=== PATIENT | male | born 1935 | race African-American/Black ===

== ENCOUNTER 2017-02-17 08:15 | Outpatient (CLI) | payer MEDICARE ==
[2017-02-17] MEDS ORDERED: NACL ONE (08:56)
== END 2017-02-17 08:16 | disposition home or self-care (01) ==
LOC: CT 08:15
PROVIDERS: ATTEND Surgery Vascular Surgery
DX: I70.229 Atherosclerosis of native arteries of extremities with rest pain, unspecified extremity (principal); I10 Essential (primary) hypertension; I25.10 Atherosclerotic heart disease of native coronary artery without angina pectoris; E11.9 Type 2 diabetes mellitus without complications; K21.9 Gastro-esophageal reflux disease without esophagitis
CPT/HCPCS: 36415; 75635; 82565; 84520; Q9967

== ENCOUNTER 2017-03-03 08:43 | Outpatient (CLI) | payer MEDICARE ==
--- NOTE | 2017-03-03 11:57 | Cat Scan Report ---
CT ANGIO ABD/FEMORAL ABD AORTA: HISTORY: Atherosclerosis of [place] arteries extremities with rest pain. TECHNIQUE: Helical CT imaging with 1.25mm reconstructions following IV contrast. Sagittal and Coronal 2D reformatted images. 3 dimensional volume rendering technique. Stenosis was measured using NASCET criteria. COMPARISON: 05/27/16. FINDINGS: ABDOMINAL AORTA: There are moderate to severe diffuse calcific plaques throughout the abdominal aorta. No evidence for dissection or aneurysm. There is less than 30% stenosis in the abdominal aorta. There is high grade stenosis at the origin of the celiac axis estimated at 80%. 50% stenosis at the origins of the SMA and PRO. ILIAC ARTERIES: Bilateral common iliac stents are in place which appear patent with less than 30% stenosis. There is 70% stenosis in the mid right external iliac artery. There is 90% stenosis in the distal left external iliac artery. The internal iliac arteries contain moderate plaque but no hemodynamically significant stenosis. RIGHT LOWER EXTREMITY: There is diffuse atherosclerotic disease with eventual occlusion in the right superficial femoral artery. There is reconstitution of flow in the distal superficial femoral artery and popliteal artery with stenosis measuring up to 50%. There are diffuse arterial calcifications distal to the knee but the vessels appear to be patent to the ankle with multiple focal stenoses estimated at 75%.. LEFT LOWER EXTREMITY: Diffuse atherosclerotic plaques in occlusion is noted throughout the proximal and mid left superficial femoral artery. There is reconstitution of flow in the left popliteal artery with up to 50% stenosis. There are diffuse calcifications in the arterial structures distal to the knee but they appear to be patent to the ankle with multiple areas of stenosis measuring up to 75%. Impression: Severe diffuse atherosclerotic disease. 80% stenosis at the origin of the celiac axis. 50% stenosis at the origin of the SMA and PRO. 70% stenosis in the right external iliac artery. 90% stenosis in the left external iliac artery. 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 Diffuse atherosclerotic disease distal to both knees with multiple focal stenoses estimated at 75%. No overwhelming change is appreciated since 05/27/16.
== END 2017-03-03 08:44 | disposition home or self-care (01) ==
LOC: CT 08:43
PROVIDERS: ATTEND Surgery Vascular Surgery
DX: I70.223 Atherosclerosis of native arteries of extremities with rest pain, bilateral legs (principal); I70.0 Atherosclerosis of aorta; Z95.828 Presence of other vascular implants and grafts
CPT/HCPCS: 75635; Q9967

== ENCOUNTER 2017-03-20 11:32 | Day surgery (SDC) | payer MEDICARE ==
--- NOTE | 2017-03-20 08:49 | History and Physical Report ---
History of Present Illness Date of examination: 03/20/17 History of present illness: Marley Fitzpatrick Date of visit: 03/06/2017 : 1935 Age: 81 yrs. ___ CHIEF COMPLAINTS follow up cta Test results returned ___ ALLERGIES No Known Drug Allergies ___ MEDICATIONS 1. Aspir-81 81 mg tablet,delayed release, 1 by mouth daily 2. carvedilol 3.125 mg tablet, 1 by mouth twice daily 3. Cilostazol 100 Mg Tablet, 1 by mouth twice daily for 30 days 4. clopidogrel 75 mg tablet, 1 by mouth daily 5. compression socks, medium 6. Eye Drops Allergy Relief 0.05 %-0.25 %, Take as Directed 7. Januvia 100 mg tablet, 1 by mouth daily 8. lisinopril 10 mg tablet, 1 by mouth daily 9. nitroglycerin 0.4 mg sublingual tablet, as needed, for chest pain x3 doses 10. Omeprazole 20 Mg Capsule,delayed Release, 1 by mouth daily 11. simvastatin 20 mg tablet, 1 by mouth daily ___ Cardiology - LVEF __ HISTORY OF PRESENT ILLNESS Here to follow up CTA results. He is not here with an produce field merchandiser, we called his grandson who was able to interpret over the phone. He still reports severe left foot pain, not as much right foot pain. All of this is by phone interpetation. Pain rated as life-style limiting, and he is still taking Pletal , asa, plavix, statin, since iliac stents placed. CTA shows patent bilateral JUAN stents, right mid EIA 70% stenosis, Left EIA 90% stenosis, b/l sfa occlusions. Left leg has the most pain and is life-style limiting. ___ REVIEW OF SYSTEMS General/Constitutional: denies recent weight loss, denies recent weight gain, denies fever, denies chills, denies change in exercise tolerance Integumentary: denies change in hair or nails, denies rashes, denies skin lesions Eyes: denies diplopia, denies visual field defects, denies blurred vision, denies eye pain, denies discharge Ears, Nose, Mouth, Throat: denies hearing loss, denies epistaxis, denies hoarseness, denies difficulty speaking Respiratory: denies dyspnea, denies cough, denies wheezing, denies hemoptysis, denies orthopnea, denies PND Cardiovascular: denies palpitations, denies chest pain, denies peripheral edema , denies syncope, denies claudication Gastrointestinal: denies ulcer disease, denies hematochezia and denies melena Musculoskeletal: pain both leg(s) Neurological: denies strokes, denies TIA, denies seizure disorder Psychiatric: denies depression, denies substance abuse, denies change in cognitive functions Endocrine: denies heat/cold intolerance, denies polydipsia, denies polyuria Hematological/Immunologic: denies food allergies, denies seasonal allergies, denies bleeding disorders PHYSICAL EXAMINATION VITAL SIGNS: Blood Pressure- 110/70 Sitting, Left arm, regular cuff Pulse- 82/min. Respirations- 15/min. Weight- 160.68943 lbs. Height- 60.00" BMI: 31 Constitutional: slightly overweight Skin: warm and dry to touch, no apparent skin lesions, no apparent masses noted Head: normocephalic, non tender, no palpable masses Eyes: EOMS Intact, PERRL, conjunctivae and lids unremarkable ENT: ears unremarkable, throat clear, without erythema, good dentition Neck: no JVD Chest: normal symmetry Cardiac: regular rhythm Abdomen: abdomen soft, non-tender Peripheral Pulses: nonpalpa b/l femoral and pedal pulses Extremities & Back: no cyanosis present, no edema observed, no dependent rubor Psychiatric: normal affect Neurological: no gross motor deficits ___ IMPRESSIONS/PLAN 1. Atherosclerosis Of Coronary Artery Bypass Graft(s) Without Angina Pectoris 2. Type 2 Diabetes Mellitus With Unspecified Complications 3. Chronic Kidney Disease, Unspecified 4. Essential (primary) Hypertension 5. Cardiomyopathy, Unspecified 6. Atherosclerosis of [place] arteries of extremities with intermittent claudication, left leg 7. Precordial pain Discussed with him angiogram via produce field merchandiser and will focus on b/l eia, and left sfa occlusion. D/w risks, benefits. I also advised him that he needs an produce field merchandiser present with him the day of the procedure or I may not do it, to make sure he understands fully my instructions. ___ TODAYS ORDERS 1. dx:Patient Education ICD-10: I10, MedlinePlus Connect results for ICD-10 I10 , I10 2. Afoapllbs-Pvjhnm-Qrzz-FORENSIC MEDICAL EXAMINER-stent, First Available, I70.212 ___ Clinic Physician: Sarvaanan Zuniga MD MD Referring Physician: FAVIO MCLEOD Medications and Allergies Allergies Allergy/AdvReac Type Severity Reaction Status Date / Time No Known Allergies Allergy Verified 11/28/14 22:35 Home Medications Medication Instructions Recorded Confirmed Last Taken Type Omeprazole [PriLOSEC] 20 mg PO QDAY 11/28/14 02/21/17 04/07/15 History Carvedilol [Coreg] 3.125 mg PO BID #60 tablet 04/10/15 02/21/17 Unknown Rx Aspirin EC [Aspirin Enteric Coated 81 mg PO QDAY tablet 10/06/15 02/21/17 Unknown Rx TAB] Clopidogrel [Plavix] 75 mg PO DAILY tablet 10/06/15 02/21/17 Unknown Rx Januvia 100 mg PO DAILY 02/24/16 07/01/16 Unknown History Famotidine [Pepcid] 20 mg PO BID #60 tablet 07/02/16 02/21/17 Unknown Rx Cilostazol [Pletal] 100 mg PO BID 02/21/17 02/23/17 02/20/17 History Lisinopril [Zestril TAB] 5 mg PO QDAY 02/21/17 Unknown History Nitroglycerin [Nitrostat] 0.4 mg SL Q5M PRN 02/21/17 02/21/17 Unknown History
[2017-03-20 12:37] LABS: Basophils % (Auto) 0.5 % (0.0-1.8); Eosinophils % (Auto) 0.4 % (0.0-4.3); Hematocrit 34.1 % (35.5-45.6); Hemoglobin 11.9 gm/dl (11.8-15.2); Mean Corpuscular HGB Conc 35 % (32-34); Mean Corpuscular Hemoglobin 32 pg (28-32); Mean Corpuscular Volume 91 fl (84-94); Platelet Count 112 K/mm3 (140-440); Red Blood Count 3.73 M/mm3 (3.65-5.03)
[2017-03-20 12:48] LABS: INR 1.02 (0.87-1.13)
[2017-03-20 12:58] LABS: Anion Gap 20 mmol/L; Blood Urea Nitrogen 15 mg/dL (9-20); Calcium 8.6 mg/dL (8.4-10.2); Carbon Dioxide 22 mmol/L (22-30); Chloride 106.3 mmol/L (98-107); Glucose 95 mg/dL (75-100); Potassium 4.3 mmol/L (3.6-5.0); Sodium 144 mmol/L (137-145)
[2017-03-20] MEDS ORDERED: NACL 0.9% 500 ML 500 ML IV SCH (13:00)
--- NOTE | 2017-03-20 14:04 | Progress Note ---
Assessment and Plan Risks of procedure explained through foreign language interpreter, all questions answered Consent obtained No changes to H&P Subjective Date of service: 03/20/17 Principal diagnosis: PAD, Severe left leg claudication Interval history: No change in H&P Discussed via foreign language interpreter Objective - Constitutional Vitals: Vital Signs - 12hr 03/20/17 12:29 Temperature 98.4 F Pulse Rate [ 67 From Monitor] Respiratory 14 Rate Blood Pressure 157/64 [Left Arm] O2 Sat by Pulse 98 Oximetry - Labs CBC & Chem 7: 03/20/17 12:28 03/20/17 12:28 Labs: Abnormal lab results 03/20/17 Range/Units 12:28 Hct 34.1 L (35.5-45.6) % MCHC 35 H (32-34) % RDW 16.0 H (13.2-15.2) % Plt Count 112 L (140-440) K/mm3 [place] % (Auto) 11.3 H (0.0-7.3) %
[2017-03-20] MEDS ORDERED: HEPARIN/NS 5000 UNIT/500ML(CATH LAB) 1,000 ML IR ONE (14:09)
[2017-03-20] MEDS ORDERED: VERSED ONE (14:10)
[2017-03-20] MEDS ORDERED: SUBLIMAZE ONE (14:10)
[2017-03-20] MEDS ORDERED: HEPARIN 10,000 UNITS/10 ML ONE (14:10)
[2017-03-20] MEDS ORDERED: XYLOCAINE 2% INFILTRATI ONE (14:10)
[2017-03-20] MEDS ORDERED: ANCEF/STERILE WATER 2 GM/20 ML 2 GM/20 ML SYRINGE IV ONE (14:10)
--- NOTE | 2017-03-20 15:50 | Procedure Note ---
Date of procedure: 03/20/17 Pre-op diagnosis: Left leg severe claudication Post-op diagnosis: same Procedure: 1. Ultrasound-guided access of right common femoral artery 2. Abdominal aortogram with left lower runoff 3. Right external iliac artery LIQUOR GRINDER MILL OPERATOR with 6x4 balloon. 4. Perclose Proglide closure to right groin Anesthesia: local Surgeon: HEMANTH OSMAN Estimated blood loss: minimal IV fluids: 300 Pathology: none Condition: stable Disposition: same day
--- NOTE | 2017-03-20 15:52 | Operative Report ---
Operative Report Operative Report: Findings: Abdominal Aorta Patent Right Iliac System Patent JUAN stent, Stenosis mid External Iliac 60-70%, diffuse disease IIA Right Femoral System Patent STENCIL CUTTER, PFA, SFA poorly visualized Right Leg Runoff Not imaged Left Iliac System Patent JUAN stent, Patent EIA, IIA Left Femoral System Patent STENCIL CUTTER, Occluded SFA proximally, Patent PFA Left Femoral Runoff Distal SFA reconstitution, Patent Popliteal, Proximal Occlusion of PT, THAO; 1-vessel runoff Peroneal Which reconstitutes distal PT Closure Device Perclose Proglide x 2 Complications None Interventions: 1. Ultrasound-guided access of Right Common Femoral Artery 2. Abdominal Aortogram 3. Left Lower Extremity Runoff 4. Angioplasty of right EIA 6x4 Estimated Blood Loss: Minimal Complications: None Disposition: PACU Stable Procedure Details The risks, benefits, complications, treatment options, and expected outcomes were discussed with the patient. The patient and/or family concurred with the proposed plan, giving informed consent. Patient was brought to the manager labor relations after IV hydration was begun and oral premedication was given. The patient was further sedated with Fentanyl and Versed and then prepped and draped in the usual manner. Under ultrasound guidance and using the modified Seldinger access technique, I gained access to the common femoral artery and this was eventually upsized to a 6 [place] sheath. Omniflush Catheter was placed in the abdominal aorta over wire and an aortogram was performed. Runoff pictures were obtained by selecting the contralateral iliac system with Bentson wire and Omniflush catheter. This showed the above. I placed a ibrahim wire down the lower extremity and placed a 6F Destination sheath but this could not traverse the bifurcation with both common iliac stents. I tried multiple combinations of wires including Amplatz, Advantage and no combination allowed the sheath to get over the stents at the bifurcation. I was able to treat the right EIA with 6 mm balloon with good result afterwards. I did a sheath angiogram of the contralateral side which confirmed a good access location and I was able to place proglide closures x 2 with no bleeding afterwards. The patient tolerated the procedure well and there were no complications. Saravanan Zuniga MD Vascular Surgery [facility]
[2017-03-20 17:17] VITALS: BP 158/64
--- NOTE | 2017-03-21 08:00 | Vascular Lab Report ---
MISCELLANEOUS VESSEL IDENTIFICATION: COMMENTS ON THE SCAN: The right common femoral artery was identified and under real-time ultrasound guidance was cannulated. IMPRESSION: Successful ultrasound guided arterial cannulation.
== END 2017-03-20 17:46 | disposition home or self-care (01) ==
LOC: OPU 11:32
PROVIDERS: ATTEND Surgery Vascular Surgery
DX: I70.212 Atherosclerosis of native arteries of extremities with intermittent claudication, left leg (principal); E11.22 Type 2 diabetes mellitus with diabetic chronic kidney disease; I12.9 Hypertensive chronic kidney disease with stage 1 through stage 4 chronic kidney disease, or unspecified chronic kidney disease; N18.9 Chronic kidney disease, unspecified; Z79.899 Other long term (current) drug therapy; Z79.82 Long term (current) use of aspirin
CPT/HCPCS: 36415; 37220; 75710; 76937; 80048; 85025; 85610; 85730; C1725; C1760; C1769; C1887; J0690; J1644; J2250; J3010; J7040; Q9967

== ENCOUNTER 2017-06-13 12:03 | Emergency (ER) | payer MEDICARE ==
--- NOTE | 2017-06-13 12:36 | Emergency Department Report ---
Chief Complaint: Chest Pain Stated Complaint: CHEST PAIN Time Seen by Provider: 06/13/17 12:32 - HPI History of Present Illness: PT states he started having chest pain yesterday. PT states earlier today the pain was "really hard" PT states his pain is a little better now. - ROS Review of Systems: + nausea + diaphoresis - noted by career agent - Exam Vital Signs: Vital Signs 06/13/17 12:09 Temperature 98.3 F Pulse Rate 95 H Respiratory 16 Rate Blood Pressure 123/63 O2 Sat by Pulse 95 Oximetry Physical Exam: PT is alert no acute resp distress skin dry and warm MSE screening note: Focused history and physical exam performed. Due to findings the following was ordered: ekg, labs, xr ED Disposition for MSE Condition: Stable
[2017-06-13 13:13] LABS: Hematocrit 30.9 % (35.5-45.6); Hemoglobin 10.9 gm/dl (11.8-15.2); Mean Corpuscular HGB Conc 35 % (32-34); Mean Corpuscular Hemoglobin 32 pg (28-32); Mean Corpuscular Volume 90 fl (84-94); Red Blood Count 3.45 M/mm3 (3.65-5.03); Red Cell Distribution Width 14.9 % (13.2-15.2); White Blood Count 8.8 K/mm3 (4.5-11.0)
[2017-06-13 13:25] LABS: INR 0.98 (0.87-1.13)
[2017-06-13 13:26] LABS: Partial Thromboplastin Time 37.6 Sec. (24.2-36.6)
[2017-06-13 13:39] LABS: Alanine Aminotransferase 21 units/L (7-56); Albumin 4.3 g/dL (3.9-5); Albumin/Globulin Ratio 1.1 %; Alkaline Phosphatase 54 units/L (35-129); Anion Gap 19 mmol/L; BUN/Creatinine Ratio 18; Blood Urea Nitrogen 20 mg/dL (9-20); Calcium 8.8 mg/dL (8.4-10.2); Carbon Dioxide 23 mmol/L (22-30); Chloride 96.1 mmol/L (98-107); Glucose 117 mg/dL (75-100); Potassium 4.6 mmol/L (3.6-5.0); Sodium 133 mmol/L (137-145); Total Protein 8.1 g/dL (6.3-8.2)
--- NOTE | 2017-06-13 13:42 | XRay Report ---
Chest 2 views: Compared to 02/24/17. History: Chest pain. Findings: Cardiomegaly. Trachea is midline. Ill-defined opacities are noted left lower lobe. Normal CP angles. Impression: Probable left lower lobe pneumonia.
[2017-06-13 14:07] LABS: Anisocytosis 1+; Basophils % (Manual) 0 % (0.0-1.8); Blastocytes % (Manual) 0 %; Eosinophils % (Manual) 0 % (0.0-4.3); Poikilocytosis 1+
[2017-06-13 14:08] LABS: Elliptocytes 1+
[2017-06-13 14:09] LABS: Acanthocytes 1+; Burr Cells Few; Schistocytes Few
[2017-06-13 14:10] LABS: Diff Status Complete; Large Platelets Few; Platelet Estimate Cons
[2017-06-13 14:17] LABS: Platelet Count 93 K/mm3 (140-440)
--- NOTE | 2017-06-13 16:37 | Emergency Department Report ---
ED Shortness of Breath HPI - General Chief Complaint: Chest Pain Stated Complaint: CHEST PAIN Time Seen by Provider: 06/13/17 12:32 Source: patient (caregiver) Mode of arrival: Ambulatory Limitations: Language Barrier, Other - History of Present Illness MD Complaint: shortness of breath, cough -: Gradual, days(s) (7) Severity: moderate Pain Scale: 3 Quality: dull, aching, sharp Consistency: constant Improves With: nothing Worsens With: coughing, inspiration Known History Of: diabetes Context: medication noncompliance Associated Symptoms: chest pain, cough Treatments Prior to Arrival: none - Related Data Home Oxygen Therapy: No Home Medications Medication Instructions Recorded Confirmed Last Taken Omeprazole [PriLOSEC] 20 mg PO QDAY 11/28/14 03/20/17 03/19/17 20mg Januvia 100 mg PO DAILY 02/24/16 03/20/17 03/19/17 100mg Cilostazol [Pletal] 100 mg PO BID 02/21/17 03/20/17 03/19/17 100mg Lisinopril [Zestril TAB] 5 mg PO QDAY 02/21/17 03/20/17 03/19/17 5mg Nitroglycerin [Nitrostat] 0.4 mg SL Q5M PRN 02/21/17 02/21/17 Unknown Previous Rx's Medication Instructions Recorded Last Taken Type Carvedilol [Coreg] 3.125 mg PO BID #60 tablet 04/10/15 03/19/17 Rx 3.125mg Aspirin EC [Aspirin Enteric Coated 81 mg PO QDAY tablet 10/06/15 03/19/17 Rx TAB] 81mg Clopidogrel [Plavix] 75 mg PO DAILY tablet 10/06/15 03/19/17 Rx 75mg Famotidine [Pepcid] 20 mg PO BID #60 tablet 07/02/16 03/19/17 Rx 20mg Amoxicillin/K Clav Tab [Augmentin 1 tab PO Q12HR 10 Days 06/13/17 Unknown Rx 875 mg] Allergies Allergy/AdvReac Type Severity Reaction Status Date / Time No Known Allergies Allergy Verified 11/28/14 22:35 ED Review of Systems ROS: Stated complaint: CHEST PAIN Other details as noted in HPI Constitutional: denies: chills, fever Eyes: denies: eye pain, eye discharge, vision change ENT: denies: ear pain, throat pain Respiratory: cough, shortness of breath. denies: orthopnea, wheezing Cardiovascular: chest pain. denies: palpitations Endocrine: no symptoms reported Gastrointestinal: denies: abdominal pain, nausea, diarrhea Genitourinary: denies: urgency, dysuria Musculoskeletal: denies: back pain, joint swelling, arthralgia Skin: denies: rash, lesions Neurological: denies: headache, weakness, paresthesias Psychiatric: denies: anxiety, depression Hematological/Lymphatic: denies: easy bleeding, easy bruising ED Past Medical Hx - Past Medical History Previous Medical History?: Yes Hx Hypertension: Yes Hx Heart Attack/AMI: Yes (x 2) Hx Diabetes: Yes Hx GERD: Yes Hx HIV: No Additional medical history: gout. 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 - Surgical History Past Surgical History?: Yes Hx Open Heart Surgery: Yes (2009) Additional Surgical History: open heart - Social History Smoking Status: Never Smoker Substance Use Type: None - Medications Home Medications: Home Medications Medication Instructions Recorded Confirmed Last Taken Type Omeprazole [PriLOSEC] 20 mg PO QDAY 11/28/14 03/20/17 03/19/17 History 20mg Carvedilol [Coreg] 3.125 mg PO BID #60 tablet 04/10/15 03/20/17 03/19/17 Rx 3.125mg Aspirin EC [Aspirin Enteric Coated 81 mg PO QDAY tablet 10/06/15 03/20/1703/19 Rx TAB] 81mg Clopidogrel [Plavix] 75 mg PO DAILY tablet 10/06/15 03/20/17 03/19/17 Rx 75mg Januvia 100 mg PO DAILY 02/24/16 03/20/17 03/19/17 History 100mg Famotidine [Pepcid] 20 mg PO BID #60 tablet 07/02/16 03/20/17 03/19/17 Rx 20mg Cilostazol [Pletal] 100 mg PO BID 02/21/17 03/20/17 03/19/17 History 100mg Lisinopril [Zestril TAB] 5 mg PO QDAY 02/21/17 03/20/17 03/19/17 History 5mg Nitroglycerin [Nitrostat] 0.4 mg SL Q5M PRN 02/21/17 02/21/17 Unknown History Amoxicillin/K Clav Tab [Augmentin 1 tab PO Q12HR 10 Days 06/13/17 Unknown Rx 875 mg] ED Physical Exam - General Limitations: Other General appearance: alert, in no apparent distress - Head Head exam: Present: atraumatic, normocephalic - Eye Eye exam: Present: normal appearance - ENT ENT exam: Present: mucous membranes moist - Neck Neck exam: Present: normal inspection - Respiratory Respiratory exam: Absent: normal lung sounds bilaterally (Rhonchi LLL), respiratory distress - Cardiovascular Cardiovascular Exam: Present: regular rate, normal rhythm. Absent: systolic murmur, diastolic murmur, rubs, gallop - GI/Abdominal GI/Abdominal exam: Present: soft, normal bowel sounds - Rectal Rectal exam: Present: deferred - Extremities Exam Extremities exam: Present: normal inspection - Back Exam Back exam: Present: normal inspection - Neurological Exam Neurological exam: Present: alert, oriented X3 - Psychiatric Psychiatric exam: Present: normal affect, normal mood - Skin Skin exam: Present: warm, dry, intact, normal color. Absent: rash ED Course Vital Signs 06/13/17 06/13/17 06/13/17 12:09 13:55 14:00 Temperature 98.3 F Pulse Rate 95 H 96 H 89 Respiratory 16 19 20 Rate Blood Pressure 123/63 136/71 Blood Pressure 143/71 [Right] O2 Sat by Pulse 95 99 Oximetry 06/13/17 06/13/17 06/13/17 14:01 14:03 14:31 Temperature Pulse Rate 88 90 Respiratory 16 19 Rate Blood Pressure 134/66 Blood Pressure [Right] O2 Sat by Pulse 98 98 Oximetry 06/13/17 15:01 Temperature Pulse Rate 101 H Respiratory 20 Rate Blood Pressure 134/66 Blood Pressure [Right] O2 Sat by Pulse 96 Oximetry ED Medical Decision Making - Lab Data Result diagrams: 06/13/17 13:00 06/13/17 13:00 - EKG Data EKG shows normal: sinus rhythm (Sinus tachycardia), axis, intervals, QRS complexes, ST-T waves (Normal ) Rate: tachycardia - EKG Data Interpretation: no acute changes - Radiology Data Radiology results: report reviewed, image reviewed - Medical Decision Making Patient with apparent LLL pneumonia with PSI class III. He has not been on antibiotics outpatient and is not in distress. I D/W caregiver that if he declines or gets no better then he can return to the ED or PCP. He will get a shot of rocephin and do oral augmentin. Critical care attestation.: If time is entered above; I have spent that time in minutes in the direct care of this critically ill patient, excluding procedure time. ED Disposition Clinical Impression: LLL pneumonia Disposition: DC-01 TO HOME OR SELFCARE Is pt being admited?: No Does the pt Need Aspirin: No Condition: Stable Instructions: Bacterial Pneumonia (ED), Community-acquired Pneumonia (ED) Prescriptions: Amoxicillin/K Clav Tab [Augmentin 875 mg] 1 tab PO Q12HR 10 Days Referrals: PRIMARY MD MANDA [Primary Care Provider] - 3-5 Days TINO OCASIO MD [Staff Physician] - 3-5 Days Time of Disposition: 16:43 (Please discharge after rocephin given.)
[2017-06-13] MEDS ORDERED: ROCEPHIN/NS 1 GM/50 ML 1 GM/50 ML BAG IV ONE (16:41)
[2017-06-13 16:48] VITALS: BP 139/64
== END 2017-06-13 17:15 | disposition home or self-care (01) ==
LOC: ED 12:03
DX: J18.9 Pneumonia, unspecified organism (principal); I10 Essential (primary) hypertension; I25.2 Old myocardial infarction; E11.9 Type 2 diabetes mellitus without complications; K21.9 Gastro-esophageal reflux disease without esophagitis; Z98.890 Other specified postprocedural states; Z79.82 Long term (current) use of aspirin
CPT/HCPCS: 36415; 71020; 80053; 84484; 85007; 85025; 85610; 85730; 93005; 93010; 96365; 99284; J0696

== ENCOUNTER 2017-07-20 15:17 | Inpatient (IN) | payer MEDICARE ==
[2017-07-20 16:11] LABS: Calcium 8.4 mg/dL (8.4-10.2)
[2017-07-20 16:23] LABS: Hematocrit 27.3 % (35.5-45.6); Hemoglobin 9.6 gm/dl (11.8-15.2); Mean Corpuscular HGB Conc 35 % (32-34); Mean Corpuscular Hemoglobin 33 pg (28-32); Mean Corpuscular Volume 93 fl (84-94); Red Blood Count 2.94 M/mm3 (3.65-5.03); Red Cell Distribution Width 16.2 % (13.2-15.2); White Blood Count 8.2 K/mm3 (4.5-11.0)
[2017-07-20 16:26] LABS: Platelet Count 75 K/mm3 (140-440)
[2017-07-20 17:06] LABS: Basophils % (Manual) 0 % (0.0-1.8); Blastocytes % (Manual) 0 %; Eosinophils % (Manual) 0 % (0.0-4.3)
[2017-07-20 17:07] LABS: Elliptocytes 1+; Large Platelets 1+
[2017-07-20 17:10] LABS: Acanthocytes 1+; Tear Drop Cells 1+
--- NOTE | 2017-07-20 17:10 | Emergency Department Report ---
ED Chest Pain HPI - General Chief Complaint: Chest Pain Stated Complaint: CHEST PAIN Time Seen by Provider: 07/20/17 16:17 Source: patient, EMS, sales account director Mode of arrival: Stretcher Limitations: Language Barrier - History of Present Illness Initial Comments: 81 years old male, does not speak Kiswahili only speak Kazakh, translation through his son, he stated that he started having chest pain this morning, describing it as left-sided chest pain he feels like somebody is sitting on his chest, patient had a history of coronary artery disease, three [place] and CABG. Patient denied any shortness of breath, no nausea no vomiting no fever no cough. MD Complaint: chest pain Onset: during rest Pain Location: substernal Severity scale (0 -10): 5 Quality: tightness - Related Data Previous Rx's Medication Instructions Recorded Last Taken Type Aspirin EC [Aspirin Enteric Coated 81 mg PO QDAY #30 tablet 07/02/17 Unknown Rx TAB] Cilostazol [Pletal] 100 mg PO BID #90 tablet 07/02/17 Unknown Rx Clopidogrel [Plavix] 75 mg PO DAILY #30 tablet 07/02/17 Unknown Rx Colchicine [Colcrys] 0.6 mg PO DAILY #30 tablet 07/02/17 Unknown Rx Lisinopril [Zestril TAB] 5 mg PO QDAY #30 tablet 07/02/17 Unknown Rx Metoprolol [Lopressor TAB] 50 mg PO BID #60 tablet 07/02/17 Unknown Rx Naproxen [Naprosyn] 500 mg PO BID PRN #60 tablet 07/02/17 Unknown Rx Pantoprazole [Protonix] 40 mg PO QDAY #30 tablet 07/02/17 Unknown Rx Pravastatin Sodium [Pravastatin] 10 mg PO QHS #30 tablet 07/02/17 Unknown Rx Sitagliptin Phosphate [Januvia] 100 mg PO DAILY #30 tablet 07/02/17 Unknown Rx predniSONE [Deltasone] 20 mg PO QDAY #7 tablet 07/02/17 Unknown Rx Allergies Allergy/AdvReac Type Severity Reaction Status Date / Time No Known Allergies Allergy Verified 11/28/14 22:35 Heart Score - HEART Score History: Moderately suspicious EKG: Non-specific Age: > 65 Risk factors: > 3 risk factors or hx of atherosclerotic disease Troponin: < normal limit HEART Score: 6 - Critical Actions Critical Actions: 4-6 pts:12-16.6% risk of adverse cardiac event. Should be admitted ED Review of Systems ROS: Stated complaint: CHEST PAIN Other details as noted in HPI Comment: All other systems reviewed and negative Constitutional: denies: chills, fever Respiratory: denies: cough, orthopnea, shortness of breath, SOB with exertion Cardiovascular: chest pain. denies: palpitations Gastrointestinal: denies: abdominal pain, nausea, vomiting Neurological: denies: headache, weakness ED Past Medical Hx - Past Medical History Hx Hypertension: Yes Hx Heart Attack/AMI: Yes (x 2) Hx Congestive Heart Failure: Yes Hx Diabetes: Yes Hx GERD: Yes Hx HIV: No Additional medical history: gout. 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 - Surgical History Hx Open Heart Surgery: Yes (2009) Additional Surgical History: open heart - Social History Smoking Status: Former Smoker Substance Use Type: None - Medications Home Medications: Home Medications Medication Instructions Recorded Confirmed Last Taken Type Aspirin EC [Aspirin Enteric Coated 81 mg PO QDAY #30 tablet 07/02/17 Unknown Rx TAB] Cilostazol [Pletal] 100 mg PO BID #90 tablet 07/02/17 Unknown Rx Clopidogrel [Plavix] 75 mg PO DAILY #30 tablet 07/02/17 Unknown Rx Colchicine [Colcrys] 0.6 mg PO DAILY #30 tablet 07/02/17 Unknown Rx Lisinopril [Zestril TAB] 5 mg PO QDAY #30 tablet 07/02/17 Unknown Rx Metoprolol [Lopressor TAB] 50 mg PO BID #60 tablet 07/02/17 Unknown Rx Naproxen [Naprosyn] 500 mg PO BID PRN #60 tablet 07/02/17 Unknown Rx Pantoprazole [Protonix] 40 mg PO QDAY #30 tablet 07/02/17 Unknown Rx Pravastatin Sodium [Pravastatin] 10 mg PO QHS #30 tablet 07/02/17 Unknown Rx Sitagliptin Phosphate [Januvia] 100 mg PO DAILY #30 tablet 07/02/17 Unknown Rx predniSONE [Deltasone] 20 mg PO QDAY #7 tablet 07/02/17 Unknown Rx ED Physical Exam - General Limitations: Language Barrier General appearance: alert, in no apparent distress - Head Head exam: Present: atraumatic, normocephalic, normal inspection - ENT ENT exam: Present: normal exam - Neck Neck exam: Present: normal inspection - Respiratory Respiratory exam: Present: normal lung sounds bilaterally - Cardiovascular Cardiovascular Exam: Present: regular rate, normal rhythm, normal heart sounds - GI/Abdominal GI/Abdominal exam: Present: soft, normal bowel sounds. Absent: distended, tenderness, guarding, rebound, rigid, mass, bruit, pulsatile mass - Extremities Exam Extremities exam: Present: normal inspection, normal capillary refill. Absent: tenderness - Back Exam Back exam: Present: normal inspection. Absent: CVA tenderness (R), CVA tenderness (L) - Neurological Exam Neurological exam: Present: alert, oriented X3, CN II-XII intact, normal gait - Skin Skin exam: Present: warm, intact, normal color ED Course Vital Signs 07/20/17 07/20/17 07/20/17 15:34 15:54 16:05 Temperature 97.8 F 97.8 F Pulse Rate 92 H 89 Respiratory 20 18 18 Rate Blood Pressure 118/35 Blood Pressure 115/51 [Left] O2 Sat by Pulse 97 100 97 Oximetry - Reevaluation(s) Reevaluation #1: 07/20/17 17:15 Patient stated that his chest pain is better. DEENA score - Deena Score Age > 65: (1) Yes Aspirin use within the Past 7 Days: (1) Yes 3 or more CAD Risk Factors: (1) Yes 2 or more Angina events in past 24 hrs: (1) Yes Known CAD with more than 50% Stenosis: (1) Yes Elevated Cardiac Markers: (0) No ST Deviation Greater than 0.5mm: (0) No DEENA Score: 5 ED Medical Decision Making - Lab Data Result diagrams: 07/20/17 15:45 07/20/17 15:45 - EKG Data -: EKG Interpreted by Me EKG shows normal: sinus rhythm Rate: normal - EKG Data Interpretation: no acute changes - Radiology Data Radiology results: image reviewed interpreted by me: Chest x-ray no acute finding - Medical Decision Making Discussed with Dr. Shaikh to admit, Dr. Shaikh accepted the patient to be admitted to his service Critical care attestation.: If time is entered above; I have spent that time in minutes in the direct care of this critically ill patient, excluding procedure time. ED Disposition Clinical Impression: Chest pain Disposition: OP ADMIT IP TO THIS HOSP Is pt being admited?: Yes Condition: Stable Instructions: Chest Pain (ED) Referrals: PRIMARY CARE, [Primary Care Provider] - 3-5 Days
[2017-07-20 17:11] LABS: Anisocytosis 1+; Ovalocytes 2+
[2017-07-20] MEDS ORDERED: BABY ASPIRIN PO ONE (17:11)
[2017-07-20 17:12] LABS: Diff Status Complete; Platelet Estimate Appears Decreased
--- NOTE | 2017-07-20 23:39 | History and Physical Report ---
History of Present Illness Date of examination: 07/20/17 Date of admission: 07/20/17 17:19 Chief complaint: CC L side CP 1 day History of present illness: - History of Present Illness Initial Comments: 81 years old male, does not speak [place] only speak [place], translation through his son, he stated that he started having chest pain this morning, describing it as left-sided chest pain he feels like somebody is sitting on his chest, patient had a history of coronary artery disease, three [place] and CABG. Patient denied any shortness of breath, no nausea no vomiting no fever no cough. MD Complaint: chest pain Onset: during rest Pain Location: substernal Severity scale (0 -10): 5 Quality: tightness HEART Score History: Moderately suspicious EKG: Non-specific Age: > 65 Risk factors: > 3 risk factors or hx of atherosclerotic disease Troponin: < normal limit HEART Score: 6 - Past Medical History Hx Hypertension: Yes Hx Heart Attack/AMI: Yes (x 2) Hx Congestive Heart Failure: Yes Hx Diabetes: Yes Hx GERD: Yes Additional medical history: gout. 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 - Surgical History Hx Open Heart Surgery: Yes (2009) Additional Surgical History: open heart - Social History Smoking Status: Former Smoker Substance Use Type: None - Medications Home Medications: Home Medications Medication Instructions Recorded Confirmed Last Taken Type Aspirin EC [Aspirin Enteric Coated 81 mg PO QDAY #30 tablet 07/02/17 Unknown Rx TAB] Cilostazol [Pletal] 100 mg PO BID #90 tablet 07/02/17 Unknown Rx Clopidogrel [Plavix] 75 mg PO DAILY #30 tablet 07/02/17 Unknown Rx Colchicine [Colcrys] 0.6 mg PO DAILY #30 tablet 07/02/17 Unknown Rx Lisinopril [Zestril TAB] 5 mg PO QDAY #30 tablet 07/02/17 Unknown Rx Metoprolol [Lopressor TAB] 50 mg PO BID #60 tablet 07/02/17 Unknown Rx Naproxen [Naprosyn] 500 mg PO BID PRN #60 tablet 07/02/17 Unknown Rx Pantoprazole [Protonix] 40 mg PO QDAY #30 tablet 07/02/17 Unknown Rx Pravastatin Sodium [Pravastatin] 10 mg PO QHS #30 tablet 07/02/17 Unknown Rx Sitagliptin Phosphate [Januvia] 100 mg PO DAILY #30 tablet 07/02/17 Unknown Rx predniSONE [Deltasone] 20 mg PO QDAY #7 tablet 07/02/17 Unknown Rx Medications and Allergies Allergies Allergy/AdvReac Type Severity Reaction Status Date / Time No Known Allergies Allergy Verified 11/28/14 22:35 Home Medications Medication Instructions Recorded Confirmed Last Taken Type Aspirin EC [Aspirin Enteric Coated 81 mg PO QDAY #30 tablet 07/02/17 07/20/17 Unknown Rx TAB] Clopidogrel [Plavix] 75 mg PO DAILY #30 tablet 07/02/17 07/20/17 Unknown Rx Colchicine [Colcrys] 0.6 mg PO DAILY #30 tablet 07/02/17 07/20/17 Unknown Rx Lisinopril [Zestril TAB] 5 mg PO QDAY #30 tablet 07/02/17 07/20/17 Unknown Rx Metoprolol [Lopressor TAB] 50 mg PO BID #60 tablet 07/02/17 07/20/17 Unknown Rx Pantoprazole [Protonix] 40 mg PO QDAY #30 tablet 07/02/17 07/20/17 Unknown Rx Pravastatin Sodium [Pravastatin] 10 mg PO QHS #30 tablet 07/02/17 07/20/17 Unknown Rx Sitagliptin Phosphate [Januvia] 100 mg PO DAILY #30 tablet 07/02/17 07/20/17 Unknown Rx Carvedilol [Coreg] 3.125 mg PO BID 07/20/17 07/20/17 Unknown History Simvastatin [Zocor TAB] 20 mg PO QHS 07/20/17 07/20/17 Unknown History Review of Systems All systems: negative Constitutional: no weight loss, no weight gain, no fever, no chills, no sweats, no night sweats Ears, nose, mouth and throat: no dysphagia, no hoarseness, no sore throat, no swelling in throat, no odynophagia Cardiovascular: chest pain, no orthopnea, no palpitations, no rapid/irregular heart beat, no edema, no syncope, no lightheadedness, no shortness of breath, no dyspnea on exertion Respiratory: no cough, no cough with sputum, no excessive sputum, no hemoptysis , no shortness of breath, no dyspnea on exertion Gastrointestinal: no abdominal pain, no nausea, no vomiting, no diarrhea, no constipation, no change in bowel habits, no hematemesis, no coffee ground emesis Genitourinary Male: no dysuria, no hematuria, no flank pain, no discharge, no urinary frequency, no urinary hesitancy, no nocturia, no incontinence Musculoskeletal: no neck stiffness, no neck pain, no shooting arm pain, no arm numbness/tingling, no low back pain, no shooting leg pain, no leg numbness/ tingling, no redness of joints Integumentary: no rash, no pruritis, no redness, no sores, no wounds, no jaundice, no boils, no blisters Neurological: no head injury, no transient paralysis, no paralysis, no weakness , no parathesias, no numbness, no tingling, no seizures, no syncope, no tremors , no ataxia, no lack of coordination Psychiatric: no anxiety, no memory loss, no change in sleep habits, no sleep disturbances, no insomnia, no hypersomnia, no change in appetite, no change in libido Endocrine: no cold intolerance, no heat intolerance, no polyphagia, no excessive thirst, no polydipsia, no polyuria, no nocturia, no excessive sweating , no flushing, no weight change Hematologic/Lymphatic: no easy bruising, no easy bleeding Allergic/Immunologic: no urticaria, no allergic rhinitis, no wheezing Exam - Constitutional Vitals: Temp Pulse Resp BP Pulse Ox 98 F 100 H 18 110/84 97 07/20/17 21:03 07/20/17 21:03 07/20/17 22:00 07/20/17 21:03 07/20/17 20:43 General appearance: Present: no acute distress, well-nourished - EENT Eyes: Present: PERRL ENT: hearing intact, clear oral mucosa - Neck Neck: Present: supple, normal ROM - Respiratory Respiratory effort: normal Respiratory: bilateral: CTA - Cardiovascular Heart Sounds: Present: S1 & S2. Absent: rub, click - Extremities Extremities: pulses symmetrical, No edema Peripheral Pulses: within normal limits - Abdominal General gastrointestinal: Present: soft, non-tender, non-distended, normal bowel sounds Male genitourinary: Present: normal - Integumentary Integumentary: Present: clear, warm, dry - Musculoskeletal Musculoskeletal: gait normal, strength equal bilaterally - Psychiatric Psychiatric: appropriate mood/affect, intact judgment & insight - Neurologic Neurologic: CNII-XII intact, moves all extremities Results - Labs CBC & Chem 7: 07/20/17 15:45 11 15:45 Labs: Laboratory Last Values WBC 8.2 K/mm3 (4.5-11.0) 07/20/17 15:45 RBC 2.94 M/mm3 (3.65-5.03) L 07/20/17 15:45 Hgb 9.6 gm/dl (11.8-15.2) L 07/20/17 15:45 Hct 27.3 % (35.5-45.6) L 07/20/17 15:45 MCV 93 fl (84-94) 07/20/17 15:45 MCH 33 pg (28-32) H 07/20/17 15:45 MCHC 35 % (32-34) H 07/20/17 15:45 RDW 16.2 % (13.2-15.2) H 07/20/17 15:45 Plt Count 75 K/mm3 (140-440) L 07/20/17 15:45 [place] % (Auto) Video Clerk 07/20/17 15:45 Add Manual Diff Complete 07/20/17 15:45 Total Counted 100 07/20/17 15:45 Seg Neuts % (Manual) 64.0 % (40.0-70.0) 07/20/17 15:45 Band Neutrophils % 0 % 07/20/17 15:45 Lymphocytes % (Manual) 26.0 % (13.4-35.0) 07/20/17 15:45 Reactive Lymphs % (Man) 0 % 07/20/17 15:45 Monocytes % (Manual) 10.0 % (0.0-7.3) H 07/20/17 15:45 Eosinophils % (Manual) 0 % (0.0-4.3) 07/20/17 15:45 Basophils % (Manual) 0 % (0.0-1.8) 07/20/17 15:45 Metamyelocytes % 0 % 07/20/17 15:45 Myelocytes % 0 % 07/20/17 15:45 Promyelocytes % 0 % 07/20/17 15:45 Blast Cells % 0 % 07/20/17 15:45 Nucleated RBC % Not Reportable 07/20/17 15:45 Seg Neutrophils # Man 5.2 K/mm3 (1.8-7.7) 07/20/17 15:45 Band Neutrophils # 0.0 K/mm3 07/20/17 15:45 Lymphocytes # (Manual) 2.1 K/mm3 (1.2-5.4) 07/20/17 15:45 Abs React Lymphs (Man) 0.0 K/mm3 07/20/17 15:45 Monocytes # (Manual) 0.8 K/mm3 (0.0-0.8) 07/20/17 15:45 Eosinophils # (Manual) 0.0 K/mm3 (0.0-0.4) 07/20/17 15:45 Basophils # (Manual) 0.0 K/mm3 (0.0-0.1) 07/20/17 15:45 Metamyelocytes # 0.0 K/mm3 07/20/17 15:45 Myelocytes # 0.0 K/mm3 07/20/17 15:45 Promyelocytes # 0.0 K/mm3 07/20/17 15:45 Blast Cells # 0.0 K/mm3 07/20/17 15:45 WBC Morphology Not Reportable 07/20/17 15:45 Hypersegmented Neuts Not Reportable 07/20/17 15:45 Hyposegmented Neuts Not Reportable 07/20/17 15:45 Hypogranular Neuts Not Reportable 07/20/17 15:45 Smudge Cells Not Reportable 07/20/17 15:45 Toxic Granulation Not Reportable 07/20/17 15:45 Toxic Vacuolation Not Reportable 07/20/17 15:45 Dohle Bodies Not Reportable 07/20/17 15:45 Pelger-Huet Anomaly Not Reportable 07/20/17 15:45 [place] Rods Not Reportable 07/20/17 15:45 Platelet Estimate Appears decreased 07/20/17 15:45 Clumped Platelets Not Reportable 07/20/17 15:45 Plt Clumps, EDTA Not Reportable 07/20/17 15:45 Large Platelets 1+ 07/20/17 15:45 Giant Platelets Not Reportable 07/20/17 15:45 Platelet Satelliting Not Reportable 07/20/17 15:45 Plt Morphology Comment Not Reportable 07/20/17 15:45 RBC Morphology Not Reportable 07/20/17 15:45 Dimorphic RBCs Not Reportable 07/20/17 15:45 Polychromasia Not Reportable 07/20/17 15:45 Hypochromasia Not Reportable 07/20/17 15:45 Poikilocytosis Not Reportable 07/20/17 15:45 Anisocytosis 1+ 07/20/17 15:45 Microcytosis Not Reportable 07/20/17 15:45 Macrocytosis Not Reportable 07/20/17 15:45 Spherocytes Not Reportable 07/20/17 15:45 Pappenheimer Bodies Not Reportable 07/20/17 15:45 Sickle Cells Not Reportable 07/20/17 15:45 Target Cells Not Reportable 07/20/17 15:45 Tear Drop Cells 1+ 07/20/17 15:45 Ovalocytes 2+ 07/20/17 15:45 Helmet Cells Not Reportable 07/20/17 15:45 [place] Bodies Not Reportable 07/20/17 15:45 [place] Rings Not Reportable 07/20/17 15:45 [place] Cells Not Reportable 07/20/17 15:45 Bite Cells Not Reportable 07/20/17 15:45 Crenated Cell Not Reportable 07/20/17 15:45 Elliptocytes 1+ 07/20/17 15:45 Acanthocytes (Spur) 1+ 07/20/17 15:45 Rouleaux Not Reportable 07/20/17 15:45 Hemoglobin C Crystals Not Reportable 07/20/17 15:45 Schistocytes Not Reportable 07/20/17 15:45 Malaria parasites Not Reportable 07/20/17 15:45 [place] Bodies Not Reportable 07/20/17 15:45 Hem Pathologist Commnt No 07/20/17 15:45 Sodium 134 mmol/L (137-145) L 07/20/17 15:45 Potassium 4.0 mmol/L (3.6-5.0) 07/20/17 15:45 Chloride 97.0 mmol/L (98-107) L 07/20/17 15:45 Carbon Dioxide 23 mmol/L (22-30) 07/20/17 15:45 Anion Gap 18 mmol/L 07/20/17 15:45 BUN 25 mg/dL (9-20) H 07/20/17 15:45 Creatinine 1.4 mg/dL (0.8-1.5) 07/20/17 15:45 Estimated GFR 48 ml/min 07/20/17 15:45 BUN/Creatinine Ratio 18 % 07/20/17 15:45 Glucose 103 mg/dL (75-100) H 07/20/17 15:45 POC Glucose 109 (70-105) H 07/20/17 15:53 Calcium 8.4 mg/dL (8.4-10.2) 07/20/17 15:45 Troponin T < 0.010 ng/mL (0.00-0.029) 07/20/17 21:20 - Imaging and Cardiology EKG: report reviewed (Sinus Tach pvc's Multiple) Chest x-ray: report reviewed (NAF) Assessment and Plan Advance Directives: Yes (Full code) VTE prophylaxis?: Chemical Plan of care discussed with patient/family: Yes - Patient Problems (1) COTY (acute kidney injury) Current Visit: No Status: Acute (2) Acute coronary syndrome Current Visit: No Status: Acute Plan to address problem: Chest pain w/u Patient has multiple comorbidities including CAD PAD T2DM Cardiology consult requested Lexiscan ordered (3) CAD (coronary artery disease) Current Visit: No Status: Chronic Qualifiers: Coronary Disease-Associated Artery/Lesion type: bypass graft [place] vs. transplanted heart: [place] heart Associated angina: angina presence unspecified Qualified Code(s): I25.810 - Atherosclerosis of coronary artery bypass graft(s) without angina pectoris Plan to address problem: Cont Plavix (4) COTY (acute kidney injury) Current Visit: Yes Status: Acute Plan to address problem: Mild Should resolve with fluids IV (5) PAD (peripheral artery disease) Current Visit: Yes Status: Chronic Plan to address problem: Continue Pletal (6) T2DM (type 2 diabetes mellitus) Current Visit: Yes Status: Chronic Qualifiers: Diabetes mellitus complication status: without complication Plan to address problem: Cont oral hypoglycemics and coverage A1c ordered (7) HLD (hyperlipidemia) Current Visit: Yes Status: Chronic Qualifiers: Hyperlipidemia type: mixed hyperlipidemia Qualified Code(s): E78.2 - Mixed hyperlipidemia Plan to address problem: Cont statins (8) DVT prophylaxis Current Visit: Yes Status: Acute Plan to address problem: Cont Lovenox
[2017-07-21] MEDS ORDERED: DULCOLAX PR PRN (00:24)
[2017-07-21] MEDS ORDERED: PERCOCET 5/325 PO PRN (00:24)
[2017-07-21] MEDS ORDERED: TYLENOL PO PRN (00:24)
[2017-07-21] MEDS ORDERED: DILAUDID IV PRN (00:24)
[2017-07-21] MEDS ORDERED: AMBIEN PO PRN (00:24)
[2017-07-21] MEDS ORDERED: ZOFRAN IV PRN (00:24)
[2017-07-21] MEDS ORDERED: MILK OF MAGNESIA PO PRN (00:24)
[2017-07-21 01:52] LABS: Creatine Kinase MB 1.4 ng/mL (0.0-4.0)
[2017-07-21 01:54] LABS: Creatine Kinase 40 units/L (55-170)
[2017-07-21 07:17] LABS: Creatine Kinase MB 1.5 ng/mL (0.0-4.0)
[2017-07-21 07:21] LABS: Creatine Kinase 38 units/L (55-170)
--- NOTE | 2017-07-21 07:46 | XRay Report ---
Single view chest: Compared to 06/24/17. History: Shortness of breath. Findings: Borderline cardiomegaly. Patient status post CABG. No consolidation, pneumothorax or pleural effusion. Impression: No acute cardiopulmonary findings.
[2017-07-21] MEDS: PLAVIX PO SCH (09:50)
[2017-07-21] MEDS: HALFPRIN EC PO SCH (09:50)
[2017-07-21] MEDS: COLCRYS PO SCH (09:50)
[2017-07-21] MEDS: PROTONIX PO SCH (09:50)
[2017-07-21] MEDS: COREG PO SCH ×2 (09:51→21:57)
[2017-07-21] MEDS: TRADJENTA PO SCH (09:51)
[2017-07-21] MEDS: ZESTRIL PO SCH (09:51)
[2017-07-21] MEDS ORDERED: LOPRESSOR PO SCH (10:00)
--- NOTE | 2017-07-21 12:12 | Progress Note ---
Assessment and Plan Assessment and plan: Chest pain. Patient has comorbidities with CAD, PAD, and diabetes mellitus type 2. Cardiology consultation pending. Follow-up Lexiscan results. CAD. Continue Plavix. Diabetes mellitus type 2. Continue oral hypoglycemics and follow-up hemoglobin A1c. Hyperlipidemia. Continue statins. DVT prophylaxis. History Interval history: Patient still complains of chest pain 5/10 in the midsternal region of the chest. No shortness of breath Hospitalist Physical - Constitutional Vitals: Temp Pulse Resp BP Pulse Ox 97.5 F L 56 L 18 130/106 99 07/21/17 00:22 07/21/17 09:51 07/21/17 10:00 07/21/17 09:51 07/21/17 06:31 General appearance: Present: no acute distress, well-nourished - EENT Eyes: Present: PERRL, EOM intact ENT: hearing intact, clear oral mucosa, dentition normal - Neck Neck: Present: supple, normal ROM - Respiratory Respiratory effort: normal Respiratory: bilateral: CTA - Cardiovascular Rhythm: regular Heart Sounds: Present: S1 & S2. Absent: gallop, rub - Extremities Extremities: no ischemia, No edema, Full ROM - Abdominal General gastrointestinal: soft, non-tender, non-distended, normal bowel sounds - Integumentary Integumentary: Present: clear, warm, dry - Neurologic Neurologic: CNII-XII intact, moves all extremities Results - Labs CBC & Chem 7: 07/20/17 15:45 07/20/17 15:45 Labs: Laboratory Last Values WBC 8.2 K/mm3 (4.5-11.0) 07/20/17 15:45 RBC 2.94 M/mm3 (3.65-5.03) L 07/20/17 15:45 Hgb 9.6 gm/dl (11.8-15.2) L 07/20/17 15:45 Hct 27.3 % (35.5-45.6) L 07/20/17 15:45 MCV 93 fl (84-94) 07/20/17 15:45 MCH 33 pg (28-32) H 07/20/17 15:45 MCHC 35 % (32-34) H 07/20/17 15:45 RDW 16.2 % (13.2-15.2) H 07/20/17 15:45 Plt Count 75 K/mm3 (140-440) L 07/20/17 15:45 [place] % (Auto) Solution Specialist 07/20/17 15:45 Add Manual Diff Complete 07/20/17 15:45 Total Counted 100 07/20/17 15:45 Seg Neuts % (Manual) 64.0 % (40.0-70.0) 07/20/17 15:45 Band Neutrophils % 0 % 07/20/17 15:45 Lymphocytes % (Manual) 26.0 % (13.4-35.0) 07/20/17 15:45 Reactive Lymphs % (Man) 0 % 07/20/17 15:45 Monocytes % (Manual) 10.0 % (0.0-7.3) H 07/20/17 15:45 Eosinophils % (Manual) 0 % (0.0-4.3) 07/20/17 15:45 Basophils % (Manual) 0 % (0.0-1.8) 07/20/17 15:45 Metamyelocytes % 0 % 07/20/17 15:45 Myelocytes % 0 % 07/20/17 15:45 Promyelocytes % 0 % 07/20/17 15:45 Blast Cells % 0 % 07/20/17 15:45 Nucleated RBC % Not Reportable 07/20/17 15:45 Seg Neutrophils # Man 5.2 K/mm3 (1.8-7.7) 07/20/17 15:45 Band Neutrophils # 0.0 K/mm3 07/20/17 15:45 Lymphocytes # (Manual) 2.1 K/mm3 (1.2-5.4) 07/20/17 15:45 Abs React Lymphs (Man) 0.0 K/mm3 07/20/17 15:45 Monocytes # (Manual) 0.8 K/mm3 (0.0-0.8) 07/20/17 15:45 Eosinophils # (Manual) 0.0 K/mm3 (0.0-0.4) 07/20/17 15:45 Basophils # (Manual) 0.0 K/mm3 (0.0-0.1) 07/20/17 15:45 Metamyelocytes # 0.0 K/mm3 07/20/17 15:45 Myelocytes # 0.0 K/mm3 07/20/17 15:45 Promyelocytes # 0.0 K/mm3 07/20/17 15:45 Blast Cells # 0.0 K/mm3 07/20/17 15:45 WBC Morphology Not Reportable 07/20/17 15:45 Hypersegmented Neuts Not Reportable 07/20/17 15:45 Hyposegmented Neuts Not Reportable 07/20/17 15:45 Hypogranular Neuts Not Reportable 07/20/17 15:45 Smudge Cells Not Reportable 07/20/17 15:45 Toxic Granulation Not Reportable 07/20/17 15:45 Toxic Vacuolation Not Reportable 07/20/17 15:45 Dohle Bodies Not Reportable 07/20/17 15:45 Pelger-Huet Anomaly Not Reportable 07/20/17 15:45 [place] Rods Not Reportable 07/20/17 15:45 Platelet Estimate Appears decreased 07/20/17 15:45 Clumped Platelets Not Reportable 07/20/17 15:45 Plt Clumps, EDTA Not Reportable 07/20/17 15:45 Large Platelets 1+ 07/20/17 15:45 Giant Platelets Not Reportable 07/20/17 15:45 Platelet Satelliting Not Reportable 07/20/17 15:45 Plt Morphology Comment Not Reportable 07/20/17 15:45 RBC Morphology Not Reportable 07/20/17 15:45 Dimorphic RBCs Not Reportable 07/20/17 15:45 Polychromasia Not Reportable 07/20/17 15:45 Hypochromasia Not Reportable 07/20/17 15:45 Poikilocytosis Not Reportable 07/20/17 15:45 Anisocytosis 1+ 07/20/17 15:45 Microcytosis Not Reportable 07/20/17 15:45 Macrocytosis Not Reportable 07/20/17 15:45 Spherocytes Not Reportable 07/20/17 15:45 Pappenheimer Bodies Not Reportable 07/20/17 15:45 Sickle Cells Not Reportable 07/20/17 15:45 Target Cells Not Reportable 07/20/17 15:45 Tear Drop Cells 1+ 07/20/17 15:45 Ovalocytes 2+ 07/20/17 15:45 Helmet Cells Not Reportable 07/20/17 15:45 [place] Bodies Not Reportable 07/20/17 15:45 [place] Rings Not Reportable 07/20/17 15:45 Elvia Cells Not Reportable 07/20/17 15:45 Bite Cells Not Reportable 07/20/17 15:45 Crenated Cell Not Reportable 07/20/17 15:45 Elliptocytes 1+ 07/20/17 15:45 Acanthocytes (Spur) 1+ 07/20/17 15:45 Rouleaux Not Reportable 07/20/17 15:45 Hemoglobin C Crystals Not Reportable 07/20/17 15:45 Schistocytes Not Reportable 07/20/17 15:45 Malaria parasites Not Reportable 07/20/17 15:45 [place] Bodies Not Reportable 07/20/17 15:45 Hem Pathologist Commnt No 07/20/17 15:45 Sodium 134 mmol/L (137-145) L 07/20/17 15:45 Potassium 4.0 mmol/L (3.6-5.0) 07/20/17 15:45 Chloride 97.0 mmol/L (98-107) L 07/20/17 15:45 Carbon Dioxide 23 mmol/L (22-30) 07/20/17 15:45 Anion Gap 18 mmol/L 07/20/17 15:45 BUN 25 mg/dL (9-20) H 07/20/17 15:45 Creatinine 1.4 mg/dL (0.8-1.5) 07/20/17 15:45 Estimated GFR 48 ml/min 07/20/17 15:45 BUN/Creatinine Ratio 18 % 07/20/17 15:45 Glucose 103 mg/dL (75-100) H 07/20/17 15:45 POC Glucose 109 (70-105) H 07/20/17 15:53 Hemoglobin A1c 4.9 % (4-6) 07/21/17 01:08 Calcium 8.4 mg/dL (8.4-10.2) 07/20/17 15:45 Total Creatine Kinase 38 units/L (55-170) L 07/21/17 05:52 CK-MB (CK-2) 1.5 ng/mL (0.0-4.0) 07/21/17 05:52 CK-MB (CK-2) Rel Index 3.9 (0-4) 07/21/17 05:52 Troponin T < 0.010 ng/mL (0.00-0.029) 07/21/17 05:52
--- NOTE | 2017-07-21 13:00 | Consultation ---
History of Present Illness Consult date: 07/21/17 Consult reason: chest pain History of present illness: This is an 81yr old [place] male with a history of 4-way coronary artery bypass in 2002. 5 months ago, he underwent drug-eluting stent placement to the mid and distal right coronary. The left internal mammary artery graft to the LAD was patent. Bypass grafts to the right coronary and circumflex systems were occluded, the residual small vessel disease of the circumflex system was recommended for medical therapy. His systolic function was well-preserved at 50- 55%. He is now admitted to this hospital with chest pain. History taken using a side splitter. Patient reports 3-4 days of chest pain lasting several minutes. There is no aggravating factors but chest pain was relieved with nitroglycerin. Patient admits to running out of his medications a week ago. Cycled cardiac enzymes are normal. No acute ischemic changes seen on his ECG. Cardiac consultation was requested. Medications and Allergies Allergies Allergy/AdvReac Type Severity Reaction Status Date / Time No Known Allergies Allergy Verified 11/28/14 22:35 Home Medications Medication Instructions Recorded Confirmed Last Taken Type Aspirin EC [Aspirin Enteric Coated 81 mg PO QDAY #30 tablet 07/02/17 07/20/17 Unknown Rx TAB] Clopidogrel [Plavix] 75 mg PO DAILY #30 tablet 07/02/17 07/20/17 Unknown Rx Colchicine [Colcrys] 0.6 mg PO DAILY #30 tablet 07/02/17 07/20/17 Unknown Rx Lisinopril [Zestril TAB] 5 mg PO QDAY #30 tablet 07/02/17 07/20/17 Unknown Rx Metoprolol [Lopressor TAB] 50 mg PO BID #60 tablet 07/02/17 07/20/17 Unknown Rx Pantoprazole [Protonix] 40 mg PO QDAY #30 tablet 07/02/17 07/20/17 Unknown Rx Pravastatin Sodium [Pravastatin] 10 mg PO QHS #30 tablet 07/02/17 07/20/17 Unknown Rx Sitagliptin Phosphate [Januvia] 100 mg PO DAILY #30 tablet 07/02/17 07/20/17 Unknown Rx Carvedilol [Coreg] 3.125 mg PO BID 07/20/17 07/20/17 Unknown History Simvastatin [Zocor TAB] 20 mg PO QHS 11/16/17 11/16/17 Unknown History Active Meds: Active Medications Acetaminophen (Tylenol) 650 mg PO Q4H PRN PRN Reason: Pain MILD(1-3)/Fever >100.5/ARMSTRONG Aspirin (Halfprin Ec) 81 mg PO QDAY [facility] Last Admin: 07/21/17 09:50 Dose: 81 mg Bisacodyl (Dulcolax) 10 mg PA QDAY PRN PRN Reason: Constipation unrelieved by MOM Carvedilol (Coreg) 3.125 mg PO BID [facility] Last Admin: 07/21/17 09:51 Dose: 3.125 mg Clopidogrel Bisulfate (Plavix) 75 mg PO DAILY [facility] Last Admin: 07/21/17 09:50 Dose: 75 mg Colchicine (Colcrys) 0.6 mg PO DAILY [facility] Last Admin: 07/21/17 09:50 Dose: 0.6 mg Hydromorphone HCl (Dilaudid) 0.5 mg IV Q3H PRN PRN Reason: Pain , Severe (7-10) Linagliptin (Tradjenta) 5 mg PO QDAY [facility] Last Admin: 07/21/17 09:51 Dose: 5 mg Lisinopril (Zestril) 5 mg PO QDAY [facility] Last Admin: 07/21/17 09:51 Dose: 5 mg Magnesium Hydroxide (Milk Of Magnesia) 30 ml PO Q4H PRN PRN Reason: Constipation Ondansetron HCl (Zofran) 4 mg IV Q8H PRN PRN Reason: N/V unrelieved by Reglan Oxycodone/Acetaminophen (Percocet 5/325) 1 tab PO Q6H PRN PRN Reason: Pain, Moderate (4-6) Pantoprazole Sodium (Protonix) 40 mg PO QDAY [facility] Last Admin: 07/21/17 09:50 Dose: 40 mg Pravastatin Sodium (Pravachol) 40 mg PO QHS [facility] Zolpidem Tartrate (Ambien) 5 mg PO QHS PRN PRN Reason: Insomnia Physical Examination Vital Signs Temp Pulse Resp BP Pulse Ox 97.8 F 92 H 20 118/35 97 07/20/17 15:34 07/20/17 15:34 07/20/17 15:34 07/20/17 15:34 07/20/17 15:34 General appearance: no acute distress HEENT: Positive: PERRL Neck: Positive: trachea midline Cardiac: Positive: Reg Rate and Rhythm Lungs: Positive: Decreased Breath Sounds Neuro: Positive: Grossly Intact Results 07/20/17 15:45 07/20/17 15:45 Cardiac Enzymes 07/21/17 07/21/17 Range/Units 01:08 05:52 CK-MB (CK-2) 1.4 1.5 (0.0-4.0) ng/mL CBC 07/20/17 Range/Units 15:45 WBC 8.2 (4.5-11.0) K/mm3 RBC 2.94 L (3.65-5.03) M/mm3 Hgb 9.6 L (11.8-15.2) gm/dl Hct 27.3 L (35.5-45.6) % Plt Count 75 L (140-440) K/mm3 Comprehensive Metabolic Panel 07/20/17 Range/Units 15:45 Sodium 134 L (137-145) mmol/L Potassium 4.0 (3.6-5.0) mmol/L Chloride 97.0 L (98-107) mmol/L Carbon Dioxide 23 (22-30) mmol/L BUN 25 H (9-20) mg/dL Creatinine 1.4 (0.8-1.5) mg/dL Glucose 103 H (75-100) mg/dL Calcium 8.4 (8.4-10.2) mg/dL Assessment and Plan Chest pain Chronic Thrombocytopenia Hx of CAD with 4v CABG [facility] 02/2017: patent SVG to LAD. s/p PCI of the RCA. EF 50-55%.
[2017-07-21 13:14] LABS: Creatine Kinase 42 units/L (55-170); Creatine Kinase MB 1.5 ng/mL (0.0-4.0)
[2017-07-21] MEDS: RANEXA ER PO SCH ×2 (17:25→21:57)
[2017-07-21] MEDS: IMDUR PO SCH (17:27)
[2017-07-21] MEDS: PRAVACHOL PO SCH (21:57)
--- NOTE | 2017-07-21 22:23 | Progress Note ---
Assessment and Plan Chest pain Chronic Thrombocytopenia Hx of CAD with 4v CABG [facility] 02/2017: patent SVG to LAD. s/p PCI of the RCA. EF 50-55%. Recurrent chronic angina in a patient with known CAD due to non-compliance with medical therapy Recommend aggressive medical therapy with BB, ASA, statin and antianginals as needed Recommend aggressive risk factor modification Subjective Date of service: 07/21/17 Interval history: No acute events. Resting comfortably. No chest pain or SOB. Objective Vital Signs Temp Pulse Resp Resp BP BP Pulse Ox 07/21/17 21:57 84 104/50 07/21/17 20:42 98.2 F 84 20 104/50 95 07/21/17 17:27 74 128/64 07/21/17 16:25 98.0 F 88 18 134/70 96 07/21/17 16:06 98.0 F 89 18 134/70 96 07/21/17 12:56 98.1 F 85 18 135/56 95 07/21/17 11:35 98.1 F 87 18 135/56 98 07/21/17 10:00 20 18 07/21/17 09:51 56 L 130/106 07/21/17 08:56 97.6 F 46 L 18 132/108 98 07/21/17 07:11 144/72 98 07/21/17 07:01 144/72 99 07/21/17 06:51 144/72 97 07/21/17 06:41 144/72 98 07/21/17 06:31 144/72 99 07/21/17 06:21 144/72 98 07/21/17 06:11 144/72 98 07/21/17 06:01 144/72 98 07/21/17 05:51 144/72 99 07/21/17 05:41 144/72 98 07/21/17 05:31 144/72 99 07/21/17 05:21 144/72 99 07/21/17 05:19 144/72 99 07/21/17 04:41 56 L 12 144/72 99 07/21/17 04:31 62 14 144/72 99 07/21/17 04:21 53 L 17 144/72 99 07/21/17 04:11 56 L 12 144/72 98 07/21/17 04:01 61 14 144/72 98 07/21/17 03:51 59 L 18 144/72 99 07/21/17 03:41 58 L 19 144/72 99 07/21/17 03:30 53 L 14 144/72 98 07/21/17 03:21 57 L 13 141/66 99 07/21/17 03:11 53 L 14 123/67 98 07/21/17 03:01 53 L 15 123/67 98 07/21/17 02:51 49 L 15 123/67 98 07/21/17 02:41 54 L 12 123/67 99 07/21/17 02:31 67 18 123/67 98 07/21/17 02:21 67 17 123/67 98 07/21/17 02:11 68 19 124/57 99 07/21/17 02:00 59 L 19 124/57 99 07/21/17 01:51 67 12 122/68 98 07/21/17 01:45 99 07/21/17 00:22 97.5 F L 82 20 130/64 97 07/20/17 23:51 88 10 L 123/67 07/20/17 23:41 85 12 124/63 07/20/17 23:30 84 23 124/63 07/20/17 23:21 91 H 22 120/71 07/20/17 23:11 87 22 115/55 07/20/17 23:01 81 20 115/55 07/20/17 22:51 17 138/65 07/20/17 22:41 22 138/65 07/20/17 22:33 15 - Physical Examination HEENT: Positive: PERRL Neck: Positive: trachea midline Neuro: Positive: Grossly Intact - Labs and Meds Cardiac Enzymes 07/21/17 07/21/17 07/21/17 Range/Units 01:08 05:52 12:19 CK-MB (CK-2) 1.4 1.5 1.5 (0.0-4.0) ng/mL CBC 07/20/17 Range/Units 15:45 Plt Count 75 L (140-440) K/mm3 - Imaging and Cardiology EKG: report reviewed (Sinus Tach pvc's Multiple)
[2017-07-22 05:34] LABS: Hematocrit 28.8 % (35.5-45.6); Hemoglobin 9.7 gm/dl (11.8-15.2); Mean Corpuscular HGB Conc 34 % (32-34); Mean Corpuscular Hemoglobin 32 pg (28-32); Mean Corpuscular Volume 94 fl (84-94); Platelet Count 79 K/mm3 (140-440); Red Blood Count 3.06 M/mm3 (3.65-5.03); Red Cell Distribution Width 16.9 % (13.2-15.2); White Blood Count 7.9 K/mm3 (4.5-11.0)
[2017-07-22 05:53] LABS: Albumin 4.1 g/dL (3.9-5); Albumin/Globulin Ratio 1.8 %; Bilirubin,Total 0.6 mg/dL (0.1-1.2); Calcium 8.3 mg/dL (8.4-10.2); Chloride 102.3 mmol/L (98-107); Potassium 5.2 mmol/L (3.6-5.0); Total Protein 6.4 g/dL (6.3-8.2)
[2017-07-22 06:45] LABS: Basophils % (Manual) 0 % (0.0-1.8); Blastocytes % (Manual) 0 %; Eosinophils % (Manual) 0 % (0.0-4.3)
[2017-07-22 06:46] LABS: Acanthocytes 1+; Anisocytosis 2+; Burr Cells 1+; Elliptocytes 1+; Large Platelets Few; Ovalocytes 2+; Polychromasia Few; Tear Drop Cells Few
[2017-07-22 06:47] LABS: Diff Status Complete; Platelet Estimate Consistent w Auto
[2017-07-22] MEDS: COLCRYS PO SCH (10:05)
[2017-07-22] MEDS: RANEXA ER PO SCH ×2 (10:05→21:41)
[2017-07-22] MEDS: HALFPRIN EC PO SCH (10:05)
[2017-07-22] MEDS: PLAVIX PO SCH (10:05)
[2017-07-22] MEDS: COREG PO SCH ×2 (10:05→21:42)
[2017-07-22] MEDS: IMDUR PO SCH (10:05)
[2017-07-22] MEDS: TRADJENTA PO SCH (10:06)
[2017-07-22] MEDS: PROTONIX PO SCH (10:06)
--- NOTE | 2017-07-22 11:56 | Progress Note ---
Assessment and Plan Assessment and plan: Chest pain. Patient has comorbidities with CAD, PAD, and diabetes mellitus type 2. Cardiology recommends aggressive medical therapy with BB, ASA, statin and antianginals as needed. Patient has recurrent chronic angina in a patient with known CAD due to non-compliance with medical therapy CAD. Continue Plavix. [facility] 02/2017: patent SVG to LAD. s/p PCI of the RCA. EF 50 -55%. Diabetes mellitus type 2. Continue oral hypoglycemics and follow-up hemoglobin A1c. Hyperlipidemia. Continue statins. DVT prophylaxis. Disposition. Anticipate discharge in a.m. History Interval history: Patient still complains of chest pain 5/10 in the midsternal region of the chest. No shortness of breath Hospitalist Physical - Constitutional Vitals: Temp Pulse Resp BP Pulse Ox 97.6 F 74 20 114/60 95 07/22/17 04:30 07/22/17 11:00 07/22/17 04:30 07/22/17 10:05 07/22/17 04:30 General appearance: Present: no acute distress - EENT Eyes: Present: PERRL, EOM intact ENT: hearing intact, clear oral mucosa, dentition normal - Neck Neck: Present: supple, normal ROM - Respiratory Respiratory effort: normal Respiratory: bilateral: CTA - Cardiovascular Rhythm: regular Heart Sounds: Present: S1 & S2. Absent: gallop, rub - Extremities Extremities: no ischemia, No edema, Full ROM - Abdominal General gastrointestinal: soft, non-tender, non-distended, normal bowel sounds - Integumentary Integumentary: Present: clear, warm, dry - Neurologic Neurologic: CNII-XII intact, moves all extremities Results - Labs CBC & Chem 7: 07/22/17 03:56 07/22/17 03:56 Labs: Laboratory Last Values WBC 7.9 K/mm3 (4.5-11.0) 07/22/17 03:56 RBC 3.06 M/mm3 (3.65-5.03) L 07/22/17 03:56 Hgb 9.7 gm/dl (11.8-15.2) L 07/22/17 03:56 Hct 28.8 % (35.5-45.6) L 07/22/17 03:56 MCV 94 fl (84-94) 07/22/17 03:56 MCH 32 pg (28-32) 07/22/17 03:56 MCHC 34 % (32-34) 07/22/17 03:56 RDW 16.9 % (13.2-15.2) H 07/22/17 03:56 Plt Count 79 K/mm3 (140-440) L 07/22/17 03:56 [place] % (Auto) Operating Room Manager 07/22/17 03:56 Add Manual Diff Complete 07/22/17 03:56 Total Counted 100 07/22/17 03:56 Seg Neuts % (Manual) 43.0 % (40.0-70.0) 07/22/17 03:56 Band Neutrophils % 21.0 % 07/22/17 03:56 Lymphocytes % (Manual) 11.0 % (13.4-35.0) L 07/22/17 03:56 Reactive Lymphs % (Man) 0 % 07/22/17 03:56 Monocytes % (Manual) 20.0 % (0.0-7.3) H 07/22/17 03:56 Eosinophils % (Manual) 0 % (0.0-4.3) 07/22/17 03:56 Basophils % (Manual) 0 % (0.0-1.8) 07/22/17 03:56 Metamyelocytes % 5.0 % 07/22/17 03:56 Myelocytes % 0 % 07/22/17 03:56 Promyelocytes % 0 % 07/22/17 03:56 Blast Cells % 0 % 07/22/17 03:56 Nucleated RBC % Not Reportable 07/22/17 03:56 Seg Neutrophils # Man 3.4 K/mm3 (1.8-7.7) 07/22/17 03:56 Band Neutrophils # 1.7 K/mm3 07/22/17 03:56 Lymphocytes # (Manual) 0.9 K/mm3 (1.2-5.4) L 07/22/17 03:56 Abs React Lymphs (Man) 0.0 K/mm3 07/22/17 03:56 Monocytes # (Manual) 1.6 K/mm3 (0.0-0.8) H 07/22/17 03:56 Eosinophils # (Manual) 0.0 K/mm3 (0.0-0.4) 07/22/17 03:56 Basophils # (Manual) 0.0 K/mm3 (0.0-0.1) 07/22/17 03:56 Metamyelocytes # 0.4 K/mm3 07/22/17 03:56 Myelocytes # 0.0 K/mm3 07/22/17 03:56 Promyelocytes # 0.0 K/mm3 07/22/17 03:56 Blast Cells # 0.0 K/mm3 07/22/17 03:56 WBC Morphology Not Reportable 07/22/17 03:56 Hypersegmented Neuts Not Reportable 07/22/17 03:56 Hyposegmented Neuts Not Reportable 07/22/17 03:56 Hypogranular Neuts Not Reportable 07/22/17 03:56 Smudge Cells Not Reportable 07/22/17 03:56 Toxic Granulation Not Reportable 07/22/17 03:56 Toxic Vacuolation Not Reportable 07/22/17 03:56 Dohle Bodies Not Reportable 07/22/17 03:56 Pelger-Huet Anomaly Not Reportable 07/22/17 03:56 [place] Rods Not Reportable 07/22/17 03:56 Platelet Estimate Consistent w auto 07/22/17 03:56 Clumped Platelets Not Reportable 07/22/17 03:56 Plt Clumps, EDTA Not Reportable 07/22/17 03:56 Large Platelets Few 07/22/17 03:56 Giant Platelets Not Reportable 07/22/17 03:56 Platelet Satelliting Not Reportable 07/22/17 03:56 Plt Morphology Comment Not Reportable 07/22/17 03:56 RBC Morphology Not Reportable 07/22/17 03:56 Dimorphic RBCs Not Reportable 07/22/17 03:56 Polychromasia Few 07/22/17 03:56 Hypochromasia Not Reportable 07/22/17 03:56 Poikilocytosis Not Reportable 07/22/17 03:56 Anisocytosis 2+ 07/22/17 03:56 Microcytosis Not Reportable 07/22/17 03:56 Macrocytosis Not Reportable 07/22/17 03:56 Spherocytes Not Reportable 07/22/17 03:56 Pappenheimer Bodies Not Reportable 07/22/17 03:56 Sickle Cells Not Reportable 07/22/17 03:56 Target Cells Not Reportable 07/22/17 03:56 Tear Drop Cells Few 07/22/17 03:56 Ovalocytes 2+ 07/22/17 03:56 Helmet Cells Not Reportable 07/22/17 03:56 [place] Bodies Not Reportable 07/22/17 03:56 [place] Rings Not Reportable 07/22/17 03:56 Elvia Cells 1+ 07/22/17 03:56 Bite Cells Not Reportable 07/22/17 03:56 Crenated Cell Not Reportable 07/22/17 03:56 Elliptocytes 1+ 07/22/17 03:56 Acanthocytes (Spur) 1+ 07/22/17 03:56 Rouleaux Not Reportable 07/22/17 03:56 Hemoglobin C Crystals Not Reportable 07/22/17 03:56 Schistocytes Not Reportable 07/22/17 03:56 Malaria parasites Not Reportable 07/22/17 03:56 Miguel Ángel Bodies Not Reportable 07/22/17 03:56 Hem Pathologist Commnt No 07/22/17 03:56 Sodium 137 mmol/L (137-145) 07/22/17 03:56 Potassium 5.2 mmol/L (3.6-5.0) H D 07/22/17 03:56 Chloride 102.3 mmol/L (98-107) 07/22/17 03:56 Carbon Dioxide 19 mmol/L (22-30) L 07/22/17 03:56 Anion Gap 21 mmol/L 07/22/17 03:56 BUN 21 mg/dL (9-20) H 07/22/17 03:56 Creatinine 1.2 mg/dL (0.8-1.5) 07/22/17 03:56 Estimated GFR 58 ml/min 07/22/17 03:56 BUN/Creatinine Ratio 18 % 07/22/17 03:56 Glucose 99 mg/dL (75-100) 07/22/17 03:56 POC Glucose 109 (70-105) H 07/20/17 15:53 Hemoglobin A1c 4.9 % (4-6) 07/21/17 01:08 Calcium 8.3 mg/dL (8.4-10.2) L 07/22/17 03:56 Total Bilirubin 0.60 mg/dL (0.1-1.2) 07/22/17 03:56 AST 16 units/L (5-40) 07/22/17 03:56 ALT 12 units/L (7-56) 07/22/17 03:56 Alkaline Phosphatase 48 units/L (35-129) 07/22/17 03:56 Total Creatine Kinase 42 units/L (55-170) L 07/21/17 12:19 CK-MB (CK-2) 1.5 ng/mL (0.0-4.0) 07/21/17 12:19 CK-MB (CK-2) Rel Index 3.5 (0-4) 07/21/17 12:19 Troponin T < 0.010 ng/mL (0.00-0.029) 07/21/17 12:19 Total Protein 6.4 g/dL (6.3-8.2) 07/22/17 03:56 Albumin 4.1 g/dL (3.9-5) 07/22/17 03:56 Albumin/Globulin Ratio 1.8 % 07/22/17 03:56
[2017-07-22] MEDS: PRAVACHOL PO SCH (21:41)
--- NOTE | 2017-07-23 07:51 | Discharge Summary ---
Providers - Providers Date of Admission: 07/20/17 17:19 Date of discharge: 07/23/17 Attending physician: CHING RIOS 07/21/17 08:59 Consult to Physician [CONS] Routine Consulting Provider: MARTIN CARRASQUILLO Reason For Exam: CAD Place consult to:: MARTIN BOTELLO Notified:: YES Was contact made?: Yes If yes, spoke with:: Hermelindo FISCHER Primary care physician: GEOCHEMISTRY TEACHER Hospitalization Reason for admission: cp Condition: Stable Hospital course: This is an 81yr old [place] male with a history of 4-way coronary artery bypass in 2002. 5 months ago, he underwent drug-eluting stent placement to the mid and distal right coronary. The left internal mammary artery graft to the LAD was patent. Bypass grafts to the right coronary and circumflex systems were occluded, the residual small vessel disease of the circumflex system was recommended for medical therapy. His systolic function was well-preserved at 50- 55%. He was admitted to this hospital with chest pain. Patient reported 3-4 days of chest pain lasting several minutes. There is no aggravating factors but chest pain was relieved with nitroglycerin. Patient admitted to running out of his medications a week ago. Cycled cardiac enzymes were normal. No acute ischemic changes seen on his ECG. The patient was seen by cardiology consultation who felt that the patient had essentially recurrent chronic angina due to non- compliance with medical therapy. In the absence of ECG changes and abnormal troponin, cardiology recommended resuming medical therapy including DAPT and No further invasive cardiac work-up. Therefore, patient is felt to have received maximal hospital benefit. Dedicated discharge time 33 minutes. Disposition: - TO HOME OR SELFCARE Time spent for discharge: 33 - Discharge Diagnoses (1) Chronic stable angina Status: Acute (2) Chest pain Status: Acute Comment: due to GERD (3) HLD (hyperlipidemia) Status: Chronic Qualifiers: Hyperlipidemia type: mixed hyperlipidemia Qualified Code(s): E78.2 - Mixed hyperlipidemia (4) T2DM (type 2 diabetes mellitus) Status: Chronic Qualifiers: Diabetes mellitus complication status: without complication (5) HTN (hypertension) Status: Acute (6) CAD (coronary artery disease) Status: Chronic Qualifiers: Coronary Disease-Associated Artery/Lesion type: [place] artery Associated angina: with unspecified angina (7) Diabetes Status: Chronic Core Measure Documentation - Palliative Care Palliative Care/ Comfort Measures: Not Applicable - Core Measures Any of the following diagnoses?: none Exam - Constitutional Vitals: Temp Pulse Resp BP Pulse Ox 97.5 F L 80 20 132/66 98 07/23/17 05:50 07/23/17 05:50 07/23/17 05:50 07/23/17 05:50 07/23/17 05:50 General appearance: Present: no acute distress, well-nourished - EENT Eyes: Present: PERRL ENT: hearing intact, clear oral mucosa - Neck Neck: Present: supple, normal ROM - Respiratory Respiratory effort: normal Respiratory: bilateral: CTA - Cardiovascular Heart Sounds: Present: S1 & S2. Absent: rub, click - Extremities Extremities: pulses symmetrical, No edema Peripheral Pulses: within normal limits - Abdominal General gastrointestinal: Present: soft, non-tender, non-distended, normal bowel sounds Male genitourinary: Present: normal - Integumentary Integumentary: Present: clear, warm, dry - Musculoskeletal Musculoskeletal: gait normal, strength equal bilaterally - Psychiatric Psychiatric: appropriate mood/affect, intact judgment & insight - Neurologic Neurologic: CNII-XII intact, moves all extremities Plan Activity: no restrictions Weight Bearing Status: Full Weight Bearing Diet: regular Follow up with: PRIMARY CARE, [Primary Care Provider] - 3-5 Days SHABANA FITCH MD [Staff Physician] - 7 Days Prescriptions: Aspirin EC [Aspirin Enteric Coated TAB] 81 mg PO QDAY #30 tablet Carvedilol [Coreg] 3.125 mg PO BID #60 tablet Clopidogrel [Plavix] 75 mg PO DAILY #30 tablet Colchicine [Colcrys] 0.6 mg PO DAILY #30 tablet ISOSORBIDE MONOnitrate [Imdur ER] 30 mg PO QDAY #30 tablet Lisinopril [Zestril TAB] 5 mg PO QDAY #30 tablet oxyCODONE /ACETAMINOPHEN [Percocet 5/325 mg] 1 tab PO Q6H PRN #15 tablet PRN Reason: Pain, Moderate (4-6) Pantoprazole [Protonix TAB] 40 mg PO QDAY #30 tablet Ranolazine ER [Ranexa ER] 500 mg PO BID #60 tablet Simvastatin [Zocor TAB] 20 mg PO QHS #30 tablet Sitagliptin Phosphate [Januvia] 100 mg PO DAILY #30 tablet
--- NOTE | 2017-07-23 09:02 | Progress Note ---
Assessment and Plan Chest pain Chronic Thrombocytopenia Hx of CAD with 4v CABG [facility] 02/2017: patent SVG to LAD. s/p PCI of the RCA. EF 50-55%. Recurrent chronic angina in a patient with known CAD due to non-compliance with medical therapy Recommend aggressive medical therapy with BB, ASA, statin and antianginals as needed Recommend aggressive risk factor modification Maximize medical therapy as blood pressure allows Subjective Date of service: 07/23/17 Interval history: No acute events. Resting comfortably. No chest pain or SOB. Objective Vital Signs Temp Pulse Resp Resp BP Pulse Ox 07/23/17 05:50 97.5 F L 80 20 132/66 98 07/23/17 03:24 82 18 07/22/17 23:46 97.5 F L 82 20 113/60 97 07/22/17 21:42 82 101/50 07/22/17 20:46 98.4 F 82 20 101/50 96 07/22/17 12:56 98.2 F 77 18 105/51 96 07/22/17 11:00 74 07/22/17 10:05 78 114/60 - Physical Examination HEENT: Positive: PERRL Neck: Positive: trachea midline Neuro: Positive: Grossly Intact - Imaging and Cardiology EKG: report reviewed (Sinus Tach pvc's Multiple)
[2017-07-23 10:22] VITALS: BP 97/62
[2017-07-23] MEDS: COREG PO SCH (10:44)
[2017-07-23] MEDS: PROTONIX PO SCH (10:44)
[2017-07-23] MEDS: PLAVIX PO SCH (10:44)
[2017-07-23] MEDS: HALFPRIN EC PO SCH (10:44)
[2017-07-23] MEDS: IMDUR PO SCH (10:44)
[2017-07-23] MEDS: TRADJENTA PO SCH (10:44)
[2017-07-23] MEDS: ZESTRIL PO SCH ×2 (10:45→10:55)
[2017-07-23] MEDS: RANEXA ER PO SCH (10:45)
[2017-07-23] MEDS: COLCRYS PO SCH (10:55)
== END 2017-07-23 14:32 | disposition home or self-care (01) | DRG 392 ==
LOC: ED 15:17 → 4A 17:19
PROVIDERS: ADMIT Internal Medicine; ATTEND Hospitalist
DX: K21.9 Gastro-esophageal reflux disease without esophagitis (principal); N17.9 Acute kidney failure, unspecified; I11.0 Hypertensive heart disease with heart failure; I50.9 Heart failure, unspecified; I73.9 Peripheral vascular disease, unspecified; E78.5 Hyperlipidemia, unspecified; D69.6 Thrombocytopenia, unspecified; M10.9 Gout, unspecified; I25.119 Atherosclerotic heart disease of native coronary artery with unspecified angina pectoris; Z95.1 Presence of aortocoronary bypass graft; Z79.82 Long term (current) use of aspirin; Z79.1 Long term (current) use of non-steroidal anti-inflammatories (NSAID); Z79.899 Other long term (current) drug therapy; Z87.891 Personal history of nicotine dependence; I25.2 Old myocardial infarction; Z91.14 Patient's other noncompliance with medication regimen
CPT/HCPCS: 36415; 71010; 80048; 80053; 82550; 82553; 82962; 83036; 84484; 85007; 85025; 93005; 93010; A9270-GY

== ENCOUNTER 2018-05-14 16:06 | Inpatient (IN) | payer MEDICARE ==
--- NOTE | 2018-05-14 16:15 | Emergency Department Report ---
ED General Adult HPI - General Chief complaint: Weakness Stated complaint: POSS CVA Time Seen by Provider: 05/14/18 16:12 Source: patient, family, EMS (verbal report received from EMS.ems notes not available at time of chart dictation), RN notes reviewed Mode of arrival: Juan Francisco Limitations: Other (he is a poor historian.) - History of Present Illness Initial comments: This is an 82-year-old gentleman whom I have evaluated in the past. His past medical history includes heart disease, stent, possible recent stroke. Patient was admitted to this hospital back in April by myself for SIRS and sepsis syndrome. He is brought to the hospital today by EMS for possible stroke. His last known well time is 11:00 AM. Stroke symptoms that were described included left-sided facial droop. Patient has his family member at the bedside, and they offered to translate. Apparently patient was in his usual state of health up until 11:00 AM and presented with a left-sided facial droop. Family also endorses the patient appears weaker than usual. They cannot describe exacerbating or relieving factors. The patient follows some commands, but will not answer open-ended questions about how he is feeling or offering open-ended narrative. -: Gradual Location: face Radiation: other Quality: other Consistency: other Improves with: other Worsens with: other Associated Symptoms: loss of appetite, weakness. denies: confusion - Related Data Home Medications Medication Instructions Recorded Confirmed Last Taken Cilostazol [Pletal] 100 mg PO BID 10/23/17 04/17/18 Unknown Gabapentin [Neurontin] 100 mg PO DAILY 10/23/17 04/17/18 Unknown Nitroglycerin 0.4 mg SL ONCE PRN 10/23/17 04/17/18 Unknown levETIRAcetam [Keppra] 1,000 mg PO BID 10/23/17 04/17/18 Unknown AtorvaSTATin [Lipitor] 40 mg PO DAILY 04/17/18 04/17/18 Unknown Cyanocobalamin (Vitamin B-12) 1,000 mcg PO QDAY 04/17/18 04/17/18 Unknown [Vitamin B-12] Multivitamin Tab [Multiple Vitamin 1 each PO QDAY 04/17/18 04/17/18 Unknown TAB (Theragran)] Sitagliptin Phosphate [Januvia] 25 mg PO DAILY 04/17/18 04/17/18 Unknown Previous Rx's Medication Instructions Recorded Last Taken Type Carvedilol [Coreg] 3.125 mg PO BID #60 tablet 07/23/17 Unknown Rx Clopidogrel [Plavix] 75 mg PO DAILY #30 tablet 07/23/17 Unknown Rx ISOSORBIDE MONOnitrate [Imdur ER] 30 mg PO QDAY #30 tablet 07/23/17 Unknown Rx Lisinopril [Zestril TAB] 5 mg PO QDAY #30 tablet 07/23/17 Unknown Rx Ranolazine ER [Ranexa ER] 500 mg PO BID #60 tablet 10/24/17 Unknown Rx Pantoprazole [Protonix TAB] 40 mg PO QDAY #30 tablet 04/20/18 Unknown Rx levoFLOXacin [Levaquin] 750 mg PO QDAY #5 tablet 04/20/18 Unknown Rx Allergies Allergy/AdvReac Type Severity Reaction Status Date / Time No Known Allergies Allergy Verified 10/22/17 16:34 ED Review of Systems ROS: Stated complaint: POSS CVA Other details as noted in HPI Comment: Unobtainable due to pts medical conditions ED Past Medical Hx - Past Medical History Hx Hypertension: Yes Hx Heart Attack/AMI: Yes Hx Congestive Heart Failure: Yes Hx Diabetes: Yes Hx GERD: Yes Hx Seizures: Yes Hx HIV: No Additional medical history: gout. 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 high cholesterol - Surgical History Hx Open Heart Surgery: Yes Additional Surgical History: open heart - Social History Smoking Status: Former Smoker - Medications Home Medications: Home Medications Medication Instructions Recorded Confirmed Last Taken Type Carvedilol [Coreg] 3.125 mg PO BID #60 tablet 07/23/17 04/17/18 Unknown Rx Clopidogrel [Plavix] 75 mg PO DAILY #30 tablet 07/23/17 04/17/18 Unknown Rx ISOSORBIDE MONOnitrate [Imdur ER] 30 mg PO QDAY #30 tablet 07/23/17 04/17/18 Unknown Rx Lisinopril [Zestril TAB] 5 mg PO QDAY #30 tablet 07/23/17 04/17/18 Unknown Rx Cilostazol [Pletal] 100 mg PO BID 10/23/17 04/17/18 Unknown History Gabapentin [Neurontin] 100 mg PO DAILY 10/23/17 04/17/18 Unknown History Nitroglycerin 0.4 mg SL ONCE PRN 10/23/17 04/17/18 Unknown History levETIRAcetam [Keppra] 1,000 mg PO BID 10/23/17 04/17/18 Unknown History Ranolazine ER [Ranexa ER] 500 mg PO BID #60 tablet 10/24/17 04/17/18 Unknown Rx AtorvaSTATin [Lipitor] 40 mg PO DAILY 04/17/18 04/17/18 Unknown History Cyanocobalamin (Vitamin B-12) 1,000 mcg PO QDAY 04/17/18 04/17/18 Unknown History [Vitamin B-12] Multivitamin Tab [Multiple Vitamin 1 each PO QDAY 04/17/18 04/17/18 Unknown History TAB (Theragran)] Sitagliptin Phosphate [Januvia] 25 mg PO DAILY 04/17/18 04/17/18 Unknown History Pantoprazole [Protonix TAB] 40 mg PO QDAY #30 tablet 04/20/18 Unknown Rx levoFLOXacin [Levaquin] 750 mg PO QDAY #5 tablet 04/20/18 Unknown Rx ED Physical Exam - General Limitations: Physical Limitation General appearance: in distress - Head Head exam: Present: atraumatic, normocephalic - Eye Eye exam: Present: normal appearance, EOMI - ENT ENT exam: Present: normal exam, normal orophraynx, normal external ear exam - Neck Neck exam: Present: normal inspection, full ROM. Absent: tenderness, meningismus - Respiratory Respiratory exam: Present: respiratory distress. Absent: wheezes, rales, rhonchi, stridor, decreased breath sounds - Cardiovascular Cardiovascular Exam: Present: regular rate, normal rhythm, normal heart sounds. Absent: bradycardia, tachycardia, irregular rhythm, systolic murmur, diastolic murmur, rubs, gallop - GI/Abdominal GI/Abdominal exam: Present: soft. Absent: distended, tenderness, guarding, rebound, rigid, pulsatile mass - Rectal Rectal exam: Present: normal inspection - exam: Present: normal inspection External exam: Present: normal external exam - Extremities Exam Extremities exam: Present: normal inspection. Absent: tenderness, calf tenderness - Back Exam Back exam: Present: normal inspection, full ROM. Absent: paraspinal tenderness - Neurological Exam Neurological exam: Present: alert, other (there is no obvious facial droop. Extraocular movements are intact. The tongue is midline. Shoulder shrug is intact. 5 out of 5 strength upper, lower extremities. Unable to assess remainder of neurologic examination secondary to language barrier, and patient' s inability to cooperate.) - Psychiatric Psychiatric exam: Present: anxious - Skin Skin exam: Present: dry ED Course Vital Signs 05/14/18 05/14/18 05/14/18 16:26 16:30 16:31 Temperature 100.3 F H Pulse Rate 74 73 73 Respiratory 16 20 17 Rate Blood Pressure 148/61 148/61 O2 Sat by Pulse 100 97 Oximetry 05/14/18 05/14/18 05/14/18 17:00 17:30 18:00 Temperature Pulse Rate 73 73 71 Respiratory 18 17 16 Rate Blood Pressure 150/61 145/59 142/57 O2 Sat by Pulse 100 100 100 Oximetry - Reevaluation(s) Reevaluation #1: 05/14/18 18:30 Patient smiling and talking in an animated fashion to family. Appears to be in no distress. Laboratory studies suggest hyponatremia. Suspect hypovolemic hyponatremia. IV fluids ordered. X-ray of the chest my interpretation appears unremarkable. Dr. Velasquez accepted the patient to the medical service. ED Medical Decision Making - Lab Data Result diagrams: 05/14/18 16:51 05/14/18 16:51 Vital Signs 05/14/18 16:31 Temperature 100.3 F H Pulse Rate 73 Respiratory 17 Rate Blood Pressure 148/61 O2 Sat by Pulse 97 Oximetry Lab Results 05/14/18 Range/Units 16:51 WBC 2.8 L (4.5-11.0) K/mm3 RBC 2.41 L (3.65-5.03) M/mm3 Hgb 7.7 L (11.8-15.2) gm/dl Hct 21.5 L (35.5-45.6) % MCV 89 (84-94) fl MCH 32 (28-32) pg MCHC 36 H (32-34) % RDW 17.6 H (13.2-15.2) % Plt Count 113 L (140-440) K/mm3 Child[place] % (Auto) [employer] - EKG Data 05/14/18 17:32 Sinus, 75 bpm, left axis deviation, premature ventricular contraction, high left ventricular voltage, Q waves noted in the inferior leads, abnormal EKG, not a STEMI, unchanged from prior. - Radiology Data Radiology results: report reviewed, image reviewed interpreted by me: X-ray of the chest is unremarkable Noncontrast CT scan of the brain is negative for acute findings. Chronic findings noted. - Medical Decision Making Differential diagnosis, including but not limited to: Stroke, transient ischemic attack, pneumonia, urinary tract infection Assessment and plan: 82-year-old male who presented more than 4.5 hours after symptom onset for possible left-sided facial droop. I do not detect an obvious left-sided facial droop. Not a TPA candidate. Found to have a low-grade fever. Does not have any obvious lateralizing motor deficits. Based on his current exam, does not require emergent angiogram In addition, patient improved dramatically in the ER with minimal intervention, and was laughing talking and smiling with staff. Discussed with consulting neurologist, , who will follow in consultation. Blood cultures, lactic acid and laboratory studies pending. Urinalysis pending at this time. Critical care attestation.: If time is entered above; I have spent that time in minutes in the direct care of this critically ill patient, excluding procedure time. ED Disposition Clinical Impression: Acute febrile illness, TIA (transient ischemic attack), Hyponatremia Disposition: OP ADMIT IP TO THIS HOSP Is pt being admited?: Yes Does the pt Need Aspirin: Yes Condition: Fair Referrals: PRIMARY CARE,MD [Primary Care Provider] - 3-5 Days - Assessment Assessment Interval: Baseline - Level of Consciousness 1a. Level of Consciousness: alert/keenly responsive - LOC Questions 1b. LOC Questions: answers both correctly (as per family) - LOC Command 1c. LOC Commands: performs tasks correctly - Best Gaze 2. Best Gaze: normal - Visual 3. Visual: no visual loss - Facial Palsy 4. Facial Palsy: normal symmetrical movement - Motor Arm 5b. Motor Arm Right: no drift 5a. Motor Arm Left: no drift - Motor Leg 6a. Motor Leg Left: no drift 6b. Motor Leg Right: no drift - Limb Ataxia 7. Limb Ataxia: amputation (unable to assess) - Sensory 8. Sensory: normal - Best Language 9. Best Language: mute/global aphasia - Dysarthria 10. Dysarthria: normal - Extinction and Inattention 11. Extinction/Inattention: no abnormality - Scoring Total Score: 3 Stroke Severity: Minor Stroke
--- NOTE | 2018-05-14 16:27 | Cat Scan Report ---
FINAL REPORT EXAM: CT HEAD/BRAIN WO CON HISTORY: neuro deficits < 6hrs or sx present upon awakening TECHNIQUE: Standard unenhanced CT of the head at 5.0 millimeter axial increments. PRIORS: CT head 10/22/2017, MRI 10/23/2017 FINDINGS: There is evidence for prior infarct involving the right occipital lobe extending from the periventricular white matter region of the atrium. Similar distribution is been seen on prior MRI. There is also small vessel ischemic changes in the centrum semiovale, right greater than left, and frontal horn regions bilaterally. Small remote lacunar infarcts in the basal ganglia bilaterally are again noted. The ventricular system is normal in size and configuration. There is mild atrophy. Extensive calcification of basal ganglia bilaterally is again noted. There is no evidence for mass lesion, mass effect, midline shift, acute intracranial hemorrhage, or acute ischemia/ infarction. No evidence for acute skull fracture is seen. No abnormality in the overlying scalp soft tissues is seen. Visualized paranasal sinuses are clear. IMPRESSION: No acute intracranial process noted. Extensive small vessel ischemic changes and a previous right occipital infarct again noted.
[2018-05-14] MEDS ORDERED: BABY ASPIRIN PO ONE (16:31)
[2018-05-14 17:21] LABS: Hematocrit 21.5 % (35.5-45.6); Hemoglobin 7.7 gm/dl (11.8-15.2); Mean Corpuscular HGB Conc 36 % (32-34); Mean Corpuscular Hemoglobin 32 pg (28-32); Mean Corpuscular Volume 89 fl (84-94); Platelet Count 113 K/mm3 (140-440); Red Blood Count 2.41 M/mm3 (3.65-5.03); Red Cell Distribution Width 17.6 % (13.2-15.2)
[2018-05-14 17:47] LABS: INR 1.14 (0.87-1.13)
[2018-05-14 17:48] LABS: Partial Thromboplastin Time 36.7 Sec. (24.2-36.6)
[2018-05-14 17:49] LABS: BUN/Creatinine Ratio 20; Blood Urea Nitrogen 16 mg/dL (9-20); Calcium 8.1 mg/dL (8.4-10.2); Hemolysis Index 29
[2018-05-14] MEDS ORDERED: NACL 0.9% 500 ML 500 ML IV ONE (17:57)
[2018-05-14 18:10] LABS: Basophils % (Manual) 0 % (0.0-1.8); Eosinophils % (Manual) 0 % (0.0-4.3); RBC Morphology Normal; Total Cells Counted 100
[2018-05-14 18:19] LABS: Bilirubin,Urine NEG (Negative); Blood,Urine NEG (Negative); Color,Urine Yellow (Yellow); Hyaline Casts,Urine 1 /LPF; Protein,Urine <15 mg/dL mg/dL (Negative); Urobilinogen,Urine < 2.0 mg/dL (<2.0)
--- NOTE | 2018-05-14 18:39 | History and Physical Report ---
History of Present Illness Chief complaint: He is really confused History of present illness: 82 YO Male with HTN, HLD, CAD S/P CABG, DM, GERD, Seizure Disorder, gout, ND presents to ED for evaluation. Pt is lethargic and unable to provide history. Pt history provided by family who is at bedside during exam and interview. As per family, the patient was in his usual stat of health today until patient experienced acuute onset of confusion, and Left sided facial drooping, and slurred speech around 1100 hrs. EMS notified, and upon arrival the patient was found to have symptoms consistent with CVA. Pt transported to [facility] for further care. Pt seen and evaluated in ED and found to have symptoms consistent with Acute CVA. Pt initiated on CVA protocol. Teleneurology consulted. Pt outside therapeutic window, and deemed not a candidate for TPA. Pt admitted to telemetry. No further history obtainable. Past History Past Medical History: acute ND, CAD, diabetes, GERD, heart failure, hyperlipidemia, seizures Past Surgical History: CABG Social history: , lives with family. denies: smoking, alcohol abuse, prescription drug abuse Family history: CAD, diabetes, hypertension Medications and Allergies Allergies Allergy/AdvReac Type Severity Reaction Status Date / Time No Known Allergies Allergy Verified 10/22/17 16:34 Home Medications Medication Instructions Recorded Confirmed Last Taken Type Carvedilol [Coreg] 3.125 mg PO BID #60 tablet 07/23/17 04/17/18 Unknown Rx Clopidogrel [Plavix] 75 mg PO DAILY #30 tablet 07/23/17 04/17/18 Unknown Rx ISOSORBIDE MONOnitrate [Imdur ER] 30 mg PO QDAY #30 tablet 07/23/17 04/17/18 Unknown Rx Lisinopril [Zestril TAB] 5 mg PO QDAY #30 tablet 07/23/17 04/17/18 Unknown Rx Cilostazol [Pletal] 100 mg PO BID 10/23/17 04/17/18 Unknown History Gabapentin [Neurontin] 100 mg PO DAILY 10/23/17 04/17/18 Unknown History Nitroglycerin 0.4 mg SL ONCE PRN 10/23/17 04/17/18 Unknown History levETIRAcetam [Keppra] 1,000 mg PO BID 10/23/17 04/17/18 Unknown History Ranolazine ER [Ranexa ER] 500 mg PO BID #60 tablet 10/24/17 04/17/18 Unknown Rx AtorvaSTATin [Lipitor] 40 mg PO DAILY 04/17/18 04/17/18 Unknown History Cyanocobalamin (Vitamin B-12) 1,000 mcg PO QDAY 04/17/18 04/17/18 Unknown History [Vitamin B-12] Multivitamin Tab [Multiple Vitamin 1 each PO QDAY 04/17/18 04/17/18 Unknown History TAB (Theragran)] Sitagliptin Phosphate [Januvia] 25 mg PO DAILY 04/17/18 04/17/18 Unknown History Pantoprazole [Protonix TAB] 40 mg PO QDAY #30 tablet 04/20/18 Unknown Rx levoFLOXacin [Levaquin] 750 mg PO QDAY #5 tablet 04/20/18 Unknown Rx Active Meds: Active Medications Ceftriaxone Sodium (Rocephin/Ns 1 Gm/50 Ml) 1 gm in 50 mls @ 100 mls/hr IV ONCE ONE; Protocol Stop: 05/14/18 19:27 Review of Systems ROS unobtainable: due to mental status Exam - Constitutional Vitals: Temp Pulse Resp BP Pulse Ox 100.3 F H 71 16 142/57 100 05/14/18 16:31 05/14/18 18:00 05/14/18 18:00 05/14/18 18:00 05/14/18 18:00 General appearance: Present: mild distress - EENT Eyes: Present: miosis - Neck Neck: Present: supple, normal ROM - Respiratory Respiratory effort: normal Respiratory: bilateral: CTA - Cardiovascular Heart Sounds: Present: S1 & S2. Absent: rub, click - Extremities Extremities: pulses symmetrical, No edema Peripheral Pulses: within normal limits - Abdominal General gastrointestinal: Present: soft, non-tender, non-distended, normal bowel sounds Male genitourinary: Present: normal - Integumentary Integumentary: Present: clear, dry, decreased turgor - Musculoskeletal Musculoskeletal: generalized weakness - Psychiatric Psychiatric: no appropriate mood/affect, no intact judgment & insight, no memory intact, no cooperative - Neurologic Neurologic: focal deficits, no gait normal Results - Labs CBC & Chem 7: 05/14/18 16:51 05/14/18 16:51 Labs: Abnormal lab results 05/14/18 05/14/18 05/14/18 Range/Units 16:51 16:51 16:51 WBC 2.8 L (4.5-11.0) K/mm3 RBC 2.41 L (3.65-5.03) M/mm3 Hgb 7.7 L (11.8-15.2) gm/dl Hct 21.5 L (35.5-45.6) % MCHC 36 H (32-34) % RDW 17.6 H (13.2-15.2) % Plt Count 113 L (140-440) K/mm3 Monocytes % (Manual) 24.0 H (0.0-7.3) % Seg Neutrophils # Man 1.2 L (1.8-7.7) K/mm3 Lymphocytes # (Manual) 0.9 L (1.2-5.4) K/mm3 PT 15.2 H (12.2-14.9) Sec. INR 1.14 H (0.87-1.13) APTT 36.7 H (24.2-36.6) Sec. Sodium 126 L (137-145) mmol/L Chloride 90.6 L (98-107) mmol/L Glucose 105 H (75-100) mg/dL Calcium 8.1 L (8.4-10.2) mg/dL Assessment and Plan - Patient Problems (1) CVA (cerebral vascular accident) Current Visit: Yes Status: Acute Qualifiers: Precerebral and cerebral artery: posterior cerebral artery Laterality of affected vessel: right Plan to address problem: Stroke Protocol: Admit to telmetry, CT Head, MRI Brain, MRA Brain, Echo, Carotid Doppler, EEG, neuro checks, PT/OT/ Speech therapy, antiplatelet therapy , Neurology consulted, permissive hypertension overnight, lipid panel, statin therapy. (2) Encephalopathy Current Visit: Yes Status: Acute Plan to address problem: CT head, neuro checks, aspiration precautions, fall precautions. (3) CHF (congestive heart failure) Current Visit: Yes Status: Suspected Qualifiers: Heart failure type: diastolic Heart failure chronicity: acute Qualified Code(s): I50.31 - Acute diastolic (congestive) heart failure Plan to address problem: Admit to telemetry, BNP, strict I/O, monitor uop q shift, daily weight, supplemental oxygen, echo (4) Diabetes Current Visit: Yes Status: Acute Plan to address problem: AD diet, insulin, accu check (5) HTN (hypertension) Current Visit: Yes Status: Acute Qualifiers: Hypertension type: essential hypertension Qualified Code(s): I10 - Essential (primary) hypertension Plan to address problem: Monitor bp q shift, permissive hypertension overnight (6) DVT prophylaxis Current Visit: Yes Status: Acute Plan to address problem: SCD to BLE while in bed.
[2018-05-14] MEDS ORDERED: DULCOLAX PR PRN (18:43)
[2018-05-14] MEDS ORDERED: ZOFRAN IV PRN (18:43)
[2018-05-14] MEDS ORDERED: MILK OF MAGNESIA PO PRN (18:43)
[2018-05-14] MEDS ORDERED: TYLENOL PO PRN (18:43)
[2018-05-14] MEDS ORDERED: SODIUM CHLORIDE FLUSH SYRINGE 10 ML IV PRN (18:43)
[2018-05-14] MEDS ORDERED: PHENERGAN PR PRN (18:43)
[2018-05-14] MEDS ORDERED: PROVENTIL IH PRN (18:43)
[2018-05-14] MEDS ORDERED: REGLAN PO PRN (18:43)
--- NOTE | 2018-05-14 18:52 | XRay Report ---
FINAL REPORT EXAM: XR CHEST 1V AP HISTORY: resp distress TECHNIQUE: Frontal chest x-ray performed portably and upright Comparison: 04/17/2018, 10/22/2017 FINDINGS: Previous median sternotomy. Heart size within normal limits. Very mild prominence of the bronchovascular interstitium. Right suprahilar infiltrate seen previously not well delineated. Clips in the left supraclavicular region. Advanced left glenohumeral joint arthritis and left acromioclavicular joint arthritis. IMPRESSION: Low volume exam. Bronchovascular crowding. Mild pulmonary vascular prominence without discrete focal infiltrate. Recommend larger inspiratory volume follow-up two view chest.
[2018-05-14] MEDS ORDERED: ROCEPHIN/NS 1 GM/50 ML 1 GM/50 ML BAG IV ONE (18:58)
[2018-05-15 08:39] LABS: Chol/HDL Ratio 4.08 %
--- NOTE | 2018-05-15 09:15 | Progress Note ---
Subjective Date of service: 05/15/18 Interval history: I have dictated a note from the stroke alert as I saw patient in CT yesterday and spoke with [facility] complicated hx of being in [facility] and having an acute stroke he also had sepsis the current CT shows large old right MCA ischemic stroke there is no family to get hx from did clinical handoff with ED physician really suspect infection has re-occured Objective - Vital Sign Vital Signs - 12hr 05/14/18 05/14/18 05/14/18 21:20 21:51 22:00 Temperature Pulse Rate 79 76 Respiratory 20 25 H Rate Blood Pressure 155/62 155/62 155/62 Blood Pressure [Left] O2 Sat by Pulse 100 77 L 98 Oximetry 05/14/18 05/15/18 05/15/18 22:02 00:49 00:50 Temperature 98.7 F 101.1 F H Pulse Rate 86 86 Respiratory 20 18 22 Rate Blood Pressure 186/76 159/67 Blood Pressure 159/86 [Left] O2 Sat by Pulse 110 H 99 Oximetry 05/15/18 05/15/18 05/15/18 04:27 08:00 08:44 Temperature 100.3 F H 32.1 F L Pulse Rate 73 79 Respiratory 24 Rate Blood Pressure 134/63 142/67 Blood Pressure [Left] O2 Sat by Pulse 100 Oximetry 05/15/18 08:47 Temperature Pulse Rate Respiratory 20 Rate Blood Pressure Blood Pressure [Left] O2 Sat by Pulse Oximetry - Laboratory Findings CBC and BMP: 05/14/18 16:51 05/14/18 16:51 Abnormal Lab Findings: Abnormal Labs 05/14/18 05/14/18 05/14/18 16:09 16:51 16:51 WBC 2.8 L RBC 2.41 L Hgb 7.7 L Hct 21.5 L MCHC 36 H RDW 17.6 H Plt Count 113 L Monocytes % (Manual) 24.0 H Seg Neutrophils # Man 1.2 L Lymphocytes # (Manual) 0.9 L PT 15.2 H INR 1.14 H APTT 36.7 H Sodium Chloride Glucose POC Glucose 114 H Calcium HDL Cholesterol 05/14/18 05/15/18 16:51 05:39 WBC RBC Hgb Hct MCHC RDW Plt Count Monocytes % (Manual) Seg Neutrophils # Man Lymphocytes # (Manual) PT INR APTT Sodium 126 L Chloride 90.6 L Glucose 105 H POC Glucose Calcium 8.1 L HDL Cholesterol 23 L
--- NOTE | 2018-05-15 13:09 | Consultation ---
HISTORY OF PRESENT ILLNESS: This is an 82-year-old [place] gentleman, who is transferred from his home by EMS [facility] with onset of delirium, loss of ability to speak and left-sided weakness. History is quite complicated and that he was transported about a week ago to [facility] for what we were told the patient had sepsis, may have had a stroke at that point. On the stroke alert I have evaluated CT scan shows an old chronic right hemispheric lesion, multiple areas of calcification in the cerebellum, the basal ganglia and globus pallidus, which were obviously degenerative in etiology and not hemorrhages. At this point on examination he is lethargic, not speaking. He has weakness of his left arm. He has gazes to the right. He does not have any active seizure activity. Cranial nerves otherwise are intact and not notice any facial weakness. His neck is supple. No meningismus is present. No tremors or asterixis. Remainder of motor and sensory examination is otherwise unremarkable. I would comment that there are no family members or other historians present. I got history directly from [facility] and they stated that they do not think the man speaks Croatian or understands Croatian; therefore, history cannot be directly taken from the patient and he is not responding to questions at present time. IMPRESSION: This patient has had chronic strokes. He has had a large right MCA stroke in the past. I cannot say whether he has had an acute stroke now, but from what I was told he had a stroke while in [facility]. This would mean he is not a candidate for TPA. I would not recommend using it, given the circumstances. There is also history of sepsis, urinary tract infection. I think this is more likely recurrent infection, but ER physician was spoken too and further assessed. JOB# [id number] SANDOR/NTS
--- NOTE | 2018-05-15 14:44 | Progress Note ---
Assessment and Plan Assessment and plan: Dysathria, rule out acute stroke -Continue stroke protocol -CT head negative for acute findings -MRI brain, MRA head and neck, echocardiogram and carotid Doppler ultrasound pending -Neurology following SIRS -Exact source of infection unknown -ua neg, cxr neg -Follow up blood culture results -Fever has trended down Acute encephalopathy -Exact cause unknown, probably secondary to stroke versus infection Anemia of chronic disease -HB level about baseline of 8. -We will monitor H&H and transfuse as needed Acute on chronic Hyponatremia -IV fluid started, will monitor sodium level DM2, stable -On SSI Seizure disorder -Home Keppra resumed -Seizure precautions CAD/PVD, stable -Home meds resumed H/O HLD -on statin GERD -on PPI Disposition: For discharge when medically stable History Interval history: Patient is unable to communicate appropriately. No overnight issues reported. Hospitalist Physical - Constitutional Vitals: Temp Pulse Resp BP Pulse Ox 32.1 F L 79 20 142/67 100 05/15/18 08:44 05/15/18 08:44 05/15/18 08:47 05/15/18 08:44 05/15/18 08:44 General appearance: Present: no acute distress - EENT Eyes: Present: PERRL, EOM intact ENT: clear oral mucosa - Neck Neck: Present: supple - Respiratory Respiratory effort: normal Respiratory: bilateral: CTA - Cardiovascular Rhythm: regular Heart Sounds: Present: S1 & S2 - Extremities Extremities: No edema - Abdominal General gastrointestinal: soft, non-tender, normal bowel sounds - Neurologic Neurologic: other (patient is awake and alert but unable to communicate appropriately) Results - Labs CBC & Chem 7: 05/14/18 16:51 05/14/18 16:51 Labs: Laboratory Last Values WBC 2.8 K/mm3 (4.5-11.0) L 05/14/18 16:51 RBC 2.41 M/mm3 (3.65-5.03) L 05/14/18 16:51 Hgb 7.7 gm/dl (11.8-15.2) L 05/14/18 16:51 Hct 21.5 % (35.5-45.6) L 05/14/18 16:51 MCV 89 fl (84-94) 05/14/18 16:51 MCH 32 pg (28-32) 05/14/18 16:51 MCHC 36 % (32-34) H 05/14/18 16:51 RDW 17.6 % (13.2-15.2) H 05/14/18 16:51 Plt Count 113 K/mm3 (140-440) L 05/14/18 16:51 [place] % (Auto) Residential Monitor 05/14/18 16:51 Add Manual Diff Complete 05/14/18 16:51 Total Counted 100 05/14/18 16:51 Seg Neuts % (Manual) 44.0 % (40.0-70.0) 05/14/18 16:51 Band Neutrophils % 0 % 05/14/18 16:51 Lymphocytes % (Manual) 32.0 % (13.4-35.0) 05/14/18 16:51 Reactive Lymphs % (Man) 0 % 05/14/18 16:51 Monocytes % (Manual) 24.0 % (0.0-7.3) H 05/14/18 16:51 Eosinophils % (Manual) 0 % (0.0-4.3) 05/14/18 16:51 Basophils % (Manual) 0 % (0.0-1.8) 05/14/18 16:51 Metamyelocytes % 0 % 05/14/18 16:51 Myelocytes % 0 % 05/14/18 16:51 Promyelocytes % 0 % 05/14/18 16:51 Blast Cells % 0 % 05/14/18 16:51 Nucleated RBC % Not Reportable 05/14/18 16:51 Seg Neutrophils # Man 1.2 K/mm3 (1.8-7.7) L 05/14/18 16:51 Band Neutrophils # 0.0 K/mm3 05/14/18 16:51 Lymphocytes # (Manual) 0.9 K/mm3 (1.2-5.4) L 05/14/18 16:51 Abs React Lymphs (Man) 0.0 K/mm3 05/14/18 16:51 Monocytes # (Manual) 0.7 K/mm3 (0.0-0.8) 05/14/18 16:51 Eosinophils # (Manual) 0.0 K/mm3 (0.0-0.4) 05/14/18 16:51 Basophils # (Manual) 0.0 K/mm3 (0.0-0.1) 05/14/18 16:51 Metamyelocytes # 0.0 K/mm3 05/14/18 16:51 Myelocytes # 0.0 K/mm3 05/14/18 16:51 Promyelocytes # 0.0 K/mm3 05/14/18 16:51 Blast Cells # 0.0 K/mm3 05/14/18 16:51 WBC Morphology Not Reportable 05/14/18 16:51 Hypersegmented Neuts Not Reportable 05/14/18 16:51 Hyposegmented Neuts Not Reportable 05/14/18 16:51 Hypogranular Neuts Not Reportable 05/14/18 16:51 Smudge Cells Not Reportable 05/14/18 16:51 Toxic Granulation Not Reportable 05/14/18 16:51 Toxic Vacuolation Not Reportable 05/14/18 16:51 Dohle Bodies Not Reportable 05/14/18 16:51 Pelger-Huet Anomaly Not Reportable 05/14/18 16:51 [place] Rods Not Reportable 05/14/18 16:51 Platelet Estimate Not Reportable 05/14/18 16:51 Clumped Platelets Not Reportable 05/14/18 16:51 Plt Clumps, EDTA Not Reportable 05/14/18 16:51 Large Platelets Not Reportable 05/14/18 16:51 Giant Platelets Not Reportable 05/14/18 16:51 Platelet Satelliting Not Reportable 05/14/18 16:51 Plt Morphology Comment Not Reportable 05/14/18 16:51 RBC Morphology Normal 05/14/18 16:51 Dimorphic RBCs Not Reportable 05/14/18 16:51 Polychromasia Not Reportable 05/14/18 16:51 Hypochromasia Not Reportable 05/14/18 16:51 Poikilocytosis Not Reportable 05/14/18 16:51 Anisocytosis Not Reportable 05/14/18 16:51 Microcytosis Not Reportable 05/14/18 16:51 Macrocytosis Not Reportable 05/14/18 16:51 Spherocytes Not Reportable 05/14/18 16:51 Pappenheimer Bodies Not Reportable 05/14/18 16:51 Sickle Cells Not Reportable 05/14/18 16:51 Target Cells Not Reportable 05/14/18 16:51 Tear Drop Cells Not Reportable 05/14/18 16:51 Ovalocytes Not Reportable 05/14/18 16:51 Helmet Cells Not Reportable 05/14/18 16:51 [place] Bodies Not Reportable 05/14/18 16:51 [place] Rings Not Reportable 05/14/18 16:51 Elvia Cells Not Reportable 05/14/18 16:51 Bite Cells Not Reportable 05/14/18 16:51 Crenated Cell Not Reportable 05/14/18 16:51 Elliptocytes Not Reportable 05/14/18 16:51 Acanthocytes (Spur) Not Reportable 05/14/18 16:51 Rouleaux Not Reportable 05/14/18 16:51 Hemoglobin C Crystals Not Reportable 05/14/18 16:51 Schistocytes Not Reportable 05/14/18 16:51 Malaria parasites Not Reportable 05/14/18 16:51 Miguel Ángel Bodies Not Reportable 05/14/18 16:51 Hem Pathologist Commnt No 05/14/18 16:51 PT 15.2 Sec. (12.2-14.9) H 05/14/18 16:51 INR 1.14 (0.87-1.13) H 05/14/18 16:51 APTT 36.7 Sec. (24.2-36.6) H 05/14/18 16:51 Sodium 126 mmol/L (137-145) L 05/14/18 16:51 Potassium 3.7 mmol/L (3.6-5.0) 05/14/18 16:51 Chloride 90.6 mmol/L (98-107) L 05/14/18 16:51 Carbon Dioxide 22 mmol/L (22-30) 05/14/18 16:51 Anion Gap 17 mmol/L 05/14/18 16:51 BUN 16 mg/dL (9-20) 05/14/18 16:51 Creatinine 0.8 mg/dL (0.8-1.5) 05/14/18 16:51 Estimated GFR > 60 ml/min 05/14/18 16:51 BUN/Creatinine Ratio 20 % 05/14/18 16:51 Glucose 105 mg/dL (75-100) H 05/14/18 16:51 POC Glucose 92 (70-105) 05/15/18 07:00 Lactic Acid 1.50 mmol/L (0.7-2.0) 05/14/18 16:51 Calcium 8.1 mg/dL (8.4-10.2) L 05/14/18 16:51 Troponin T < 0.010 ng/mL (0.00-0.029) 05/14/18 16:51 Triglycerides 70 mg/dL (2-149) 05/15/18 05:39 Cholesterol 94 mg/dL (50-199) 05/15/18 05:39 LDL Cholesterol Direct 66 mg/dL (50-130) 05/15/18 05:39 HDL Cholesterol 23 mg/dL (40-59) L 05/15/18 05:39 Cholesterol/HDL Ratio 4.08 % 05/15/18 05:39 Urine Color Yellow (Yellow) 05/14/18 17:55 Urine Turbidity Clear (Clear) 05/14/18 17:55 Urine pH 6.0 (5.0-7.0) 05/14/18 17:55 Ur Specific Omar 1.009 (1.003-1.030) 05/14/18 17:55 Urine Protein <15 mg/dl mg/dL (Negative) 05/14/18 17:55 Urine Glucose (UA) Neg mg/dL (Negative) 05/14/18 17:55 Urine Ketones Neg mg/dL (Negative) 05/14/18 17:55 Urine Blood Neg (Negative) 05/14/18 17:55 Urine Nitrite Neg (Negative) 05/14/18 17:55 Urine Bilirubin Neg (Negative) 05/14/18 17:55 Urine Urobilinogen < 2.0 mg/dL (<2.0) 05/14/18 17:55 Ur Leukocyte Esterase Neg (Negative) 05/14/18 17:55 Urine WBC (Auto) 1.0 /HPF (0.0-6.0) 05/14/18 17:55 Urine RBC (Auto) 4.0 /HPF (0.0-6.0) 05/14/18 17:55 Hyaline Casts 1 /LPF 05/14/18 17:55
[2018-05-15] MEDS ORDERED: D50W (25GM) Syringe IV PRN (14:56)
--- NOTE | 2018-05-15 16:08 | Progress Note ---
Subjective Date of service: 05/15/18 Interval history: only the MRA has come back for me to review and there is missing branch of distal small branch of the right MCA this is minimal and very chronic no vessel stenosis of proximal portions of the ICA this is my personal read formal report from radiology is definitive final judgement do not see any lesions that need endovascular therapy Objective - Vital Sign Vital Signs - 12hr 05/15/18 05/15/18 05/15/18 04:27 08:00 08:44 Temperature 100.3 F H 32.1 F L Pulse Rate 73 79 Respiratory 24 Rate Blood Pressure 134/63 142/67 O2 Sat by Pulse 100 Oximetry 05/15/18 08:47 Temperature Pulse Rate Respiratory 20 Rate Blood Pressure O2 Sat by Pulse Oximetry - Laboratory Findings CBC and BMP: 05/14/18 16:51 05/14/18 16:51 Abnormal Lab Findings: Abnormal Labs 05/14/18 05/14/18 05/14/18 16:09 16:51 16:51 WBC 2.8 L RBC 2.41 L Hgb 7.7 L Hct 21.5 L MCHC 36 H RDW 17.6 H Plt Count 113 L Monocytes % (Manual) 24.0 H Seg Neutrophils # Man 1.2 L Lymphocytes # (Manual) 0.9 L PT 15.2 H INR 1.14 H APTT 36.7 H Sodium Chloride Glucose POC Glucose 114 H Calcium HDL Cholesterol 05/14/18 05/15/18 16:51 05:39 WBC RBC Hgb Hct MCHC RDW Plt Count Monocytes % (Manual) Seg Neutrophils # Man Lymphocytes # (Manual) PT INR APTT Sodium 126 L Chloride 90.6 L Glucose 105 H POC Glucose Calcium 8.1 L HDL Cholesterol 23 L
[2018-05-15] MEDS: LEVAQUIN 750MG/150ML 750 MG/150 ML BAG IV SCH (16:46)
[2018-05-15] MEDS: NACL 0.9% 1000 ML 1,000 ML IV SCH (16:46)
--- NOTE | 2018-05-15 17:38 | Magnetic Resonance Report ---
FINAL REPORT EXAM: MR BRAIN WO CON HISTORY: stroke TECHNIQUE: Multiplanar multisequence noncontrast MR images of the brain were performed Comparison: CT brain earlier same day demonstrating prior right occipital infarct from the periventricular region to the atrium, small-vessel ischemic changes right greater than left centrum semi ovale and frontal horn regions bilaterally, remote lacunar infarcts basal ganglia, CT brain 04/17/2018, MR brain 10/23/2017 FINDINGS: There are extensive patchy and confluent areas of increased T2 signal throughout the supraventricular white matter consistent with chronic small vessel ischemic change. Calcifications are noted at basal ganglia. No evidence for brain edema pattern or mass effect. Ventricles and sulci are within normal limits. No evidence for acute intra-axial or extra-axial hemorrhage. There is mild right occipital cortical restricted diffusion. There is has been interval development of punctate 4 millimeter focus of restricted diffusion in the right posterior limb internal capsule and external capsule and 3 millimeter focus of restricted diffusion in the right basal ganglia. Brainstem and posterior fossa structures are unremarkable. T1 weighted images demonstrate no acute blood products. Cerebellopontine angles and vestibular cochlear nerve sheath bundles are normal. Brainstem shows no focal restricted diffusion. Prominent Virchow Cas spaces. IMPRESSION: Right occipital cortex restricted diffusion in the LAUNDRY TECHNICIAN distribution. Punctate foci of restricted diffusion in the posterior limb right internal capsule, right basal ganglia, and right external capsule compatible with acute embolic lacunar infarcts. No hemorrhage is identified. 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 Critical level 1 result called on 05/15/2018 at 1736 hours Eastern Standard time.
[2018-05-15] MEDS: HumaLOG SUB-Q SCH ×2 (17:40→23:57)
--- NOTE | 2018-05-15 18:09 | Magnetic Resonance Report ---
FINAL REPORT EXAM: MR MRA/MRV HEAD WO CON HISTORY: stroke TECHNIQUE: Axial noncontrast 3D [id number] images were performed. Comparison: MR brain 10/23/2017 at which time no acute stroke was identified FINDINGS: Review of the source images demonstrate could dominant distal vertebral arteries form the basilar artery. Persistent supply of the left posterior cerebral artery via the left posterior communicating artery. Right posterior cerebral artery is supplied from both basilar artery/P1 segment and patent posterior communicating artery. Distal branches of the right posterior cerebral artery show normal enhancement pattern. There is marked irregularity of the distal right cervical internal carotid artery with either high-grade stenosis, hairpin loop, or occlusion. The supraclinoid carotid arteries bilaterally are patent. The anterior cerebral arteries are patent. Anterior communicating artery is patent and appears to be fenestrated. 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 The right middle cerebral artery is unremarkable. The left middle cerebral artery is unremarkable. There are bilateral basal ganglia calcifications. Reconstructed images are limited by artifact presumably from both calcification and motion. Limited spatial resolution. 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 Cosupply of the right posterior cerebral artery from the posterior cerebral artery and posterior communicating artery. No aneurysm or occlusion identified. Recommend correlation with CTA carotids/[place] for the above findings to improve the spatial resolution and visualization with a calcification of the braxton. Findings are called to the referring clinician at the time of dictation on 05/15/2018 at 1807 hours Eastern Standard time.
[2018-05-15] MEDS: KEPPRA PO SCH (23:56)
[2018-05-15] MEDS: COREG PO SCH (23:56)
[2018-05-15] MEDS: RANEXA ER PO SCH (23:57)
[2018-05-15] MEDS: PLETAL PO SCH (23:57)
[2018-05-16] MEDS: NACL 0.9% 1000 ML 1,000 ML IV SCH ×2 (07:15→23:25)
[2018-05-16 07:22] LABS: Hemoglobin 7.1 gm/dl (11.8-15.2); Mean Corpuscular HGB Conc 35 % (32-34); Mean Corpuscular Hemoglobin 32 pg (28-32); Mean Corpuscular Volume 89 fl (84-94); Red Blood Count 2.24 M/mm3 (3.65-5.03); Red Cell Distribution Width 17.2 % (13.2-15.2)
[2018-05-16 07:34] LABS: Platelet Count 85 K/mm3 (140-440)
[2018-05-16 07:44] LABS: BUN/Creatinine Ratio 21; Blood Urea Nitrogen 17 mg/dL (9-20); Calcium 7.8 mg/dL (8.4-10.2); Hemolysis Index 0
[2018-05-16] MEDS: HumaLOG SUB-Q SCH ×3 (08:15→23:28)
[2018-05-16 09:39] LABS: Anisocytosis 2+; Basophils % (Manual) 0 % (0.0-1.8); Eosinophils % (Manual) 0 % (0.0-4.3); Total Cells Counted 100
[2018-05-16 09:40] LABS: Ovalocytes 1+; Schistocytes Rare
[2018-05-16 09:41] LABS: Tear Drop Cells Rare
[2018-05-16 09:42] LABS: Acanthocytes 2+; Platelet Estimate Cons; Poikilocytosis 3+
[2018-05-16] MEDS: LEVAQUIN 750MG/150ML 750 MG/150 ML BAG IV SCH (12:25)
[2018-05-16] MEDS: KEPPRA PO SCH ×2 (12:29→23:28)
[2018-05-16] MEDS: VITAMIN B-12 PO SCH (12:29)
[2018-05-16] MEDS: PLETAL PO SCH ×2 (12:30→23:27)
[2018-05-16] MEDS: IMDUR PO SCH (12:30)
[2018-05-16] MEDS: RANEXA ER PO SCH ×2 (12:30→23:27)
[2018-05-16] MEDS: PLAVIX PO SCH (12:30)
[2018-05-16] MEDS: THERAGRAN Tab PO SCH (12:30)
[2018-05-16] MEDS: COREG PO SCH ×2 (12:30→23:29)
[2018-05-16] MEDS: PROTONIX PO SCH (12:30)
[2018-05-16] MEDS: NEURONTIN PO SCH (12:31)
[2018-05-16] MEDS: ZESTRIL PO SCH (12:35)
--- NOTE | 2018-05-16 13:26 | Progress Note ---
Assessment and Plan Acute right embolic lacuner CVA -Continue stroke protocol -CT head negative for acute findings -MRI brain, MRA head and neck, echocardiogram and carotid Doppler ultrasound ordered, and noted report -Neurology following, speech eval pending Dysathria, likely from acute stroke - speech eval pending, start on D5NS SIRS -Exact source of infection unknown -ua neg, cxr neg -Follow up blood culture results -Fever has trended down Acute encephalopathy -Exact cause unknown, probably secondary to stroke versus vascular dementia Anemia of chronic disease -HB level at baseline is 8. -dropped to 7.1 today, ordered stool for occult blood - We will monitor H&H and transfuse one unit PRBC if repeat hb still low Acute on chronic Hyponatremia -IV fluid started, monitor sodium level DM2, stable -On SSI Seizure disorder -Home Keppra resumed -Seizure precautions CAD/PVD, stable -Home meds resumed H/O HLD -on statin GERD -on PPI Disposition: For discharge when medically stable Hospitalist Physical General appearance: Present: no acute distress - EENT Eyes: Present: PERRL, EOM intact ENT: clear oral mucosa - Neck Neck: Present: supple - Respiratory Respiratory effort: normal Respiratory: bilateral: CTA - Cardiovascular Rhythm: regular Heart Sounds: Present: S1 & S2 - Extremities Extremities: No edema - Abdominal General gastrointestinal: soft, non-tender, normal bowel sounds - Neurologic Neurologic: other (patient is awake and alert but unable to communicate appropriately) Subjective Date of service: 05/16/18 Interval history: patient seen and examined getting PT eval at bedside, present no acute event per RN Objective - Constitutional Vitals: Vital Signs - 12hr 05/16/18 05/16/18 05:16 10:00 Temperature 98.7 F Pulse Rate 100 H Respiratory 20 Rate Blood Pressure 116/59 O2 Sat by Pulse 98 99 Oximetry - Labs CBC & Chem 7: 05/17/18 11:32 05/17/18 09:43 Labs: Abnormal lab results 05/15/18 05/16/18 05/16/18 Range/Units 22:29 07:01 07:01 WBC 2.5 L (4.5-11.0) K/mm3 RBC 2.24 L (3.65-5.03) M/mm3 Hgb 7.1 L (11.8-15.2) gm/dl Hct 20.0 L (35.5-45.6) % MCHC 35 H (32-34) % RDW 17.2 H (13.2-15.2) % Plt Count 85 L (140-440) K/mm3 Monocytes % (Manual) 18.0 H (0.0-7.3) % Seg Neutrophils # Man 1.4 L (1.8-7.7) K/mm3 Lymphocytes # (Manual) 0.7 L (1.2-5.4) K/mm3 Sodium 127 L (137-145) mmol/L Chloride 95.6 L (98-107) mmol/L Glucose 101 H (75-100) mg/dL POC Glucose 106 H (70-105) Calcium 7.8 L (8.4-10.2) mg/dL
[2018-05-16 13:44] LABS: Hemoglobin 6.9 gm/dl (11.8-15.2)
[2018-05-16 13:56] LABS: Hematocrit 19.7 % (35.5-45.6)
[2018-05-17] MEDS: HumaLOG SUB-Q SCH ×2 (07:48→22:22)
[2018-05-17] MEDS ORDERED: NACL 0.9% 500 ML 500 ML IV NR (08:30)
[2018-05-17] MEDS: NACL 0.9% 1000 ML 1,000 ML IV SCH (10:12)
[2018-05-17] MEDS: PLETAL PO SCH ×2 (10:13→22:20)
[2018-05-17] MEDS: PROTONIX PO SCH (10:13)
[2018-05-17] MEDS: VITAMIN B-12 PO SCH (10:13)
[2018-05-17] MEDS: IMDUR PO SCH (10:13)
[2018-05-17] MEDS: PLAVIX PO SCH (10:13)
[2018-05-17] MEDS: THERAGRAN Tab PO SCH (10:13)
[2018-05-17] MEDS: KEPPRA PO SCH ×2 (10:13→22:20)
[2018-05-17] MEDS: RANEXA ER PO SCH ×2 (10:13→22:20)
[2018-05-17] MEDS: ZESTRIL PO SCH (10:13)
[2018-05-17] MEDS: NEURONTIN PO SCH (10:14)
[2018-05-17] MEDS: COREG PO SCH ×2 (10:14→22:32)
[2018-05-17] MEDS: LEVAQUIN 750MG/150ML 750 MG/150 ML BAG IV SCH (10:16)
[2018-05-17 11:01] LABS: BUN/Creatinine Ratio 20; Blood Urea Nitrogen 18 mg/dL (9-20); Calcium 7.6 mg/dL (8.4-10.2); Hemolysis Index 16
[2018-05-17 11:42] LABS: Hemoglobin 6.1 gm/dl (11.8-15.2); Mean Corpuscular HGB Conc 36 % (32-34); Mean Corpuscular Hemoglobin 32 pg (28-32); Mean Corpuscular Volume 90 fl (84-94); Red Blood Count 1.92 M/mm3 (3.65-5.03); Red Cell Distribution Width 16.5 % (13.2-15.2)
[2018-05-17 11:46] LABS: Hematocrit 17.3 % (35.5-45.6); Platelet Count 75 K/mm3 (140-440)
[2018-05-17] MEDS ORDERED: NACL 0.9% 500 ML 500 ML IV ONE (12:13)
--- NOTE | 2018-05-17 15:16 | Progress Note ---
Assessment and Plan Acute right embolic lacuner CVA -Continue stroke protocol -CT head negative for acute findings -MRI brain, MRA head and neck, echocardiogram and carotid Doppler ultrasound ordered, and noted report -Neurology following, speech eval pending Dysathria, likely from acute stroke - speech eval pending, on D5NS - will start on mechanical soft diet SIRS -Exact source of infection unknown -ua neg, cxr neg -Follow up blood culture results -Fever has trended down Acute encephalopathy -Exact cause unknown, probably secondary to stroke versus vascular dementia Anemia of chronic disease -HB level at baseline is 8. -dropped to 6.1 today, ordered stool for occult blood - We will monitor H&H and transfuse 2 units PRBC Acute on chronic Hyponatremia -IV fluid started, monitor sodium level DM2, stable -On SSI Seizure disorder -Home Keppra resumed -Seizure precautions CAD/PVD, stable -Home meds resumed H/O HLD -on statin GERD -on PPI Disposition: For discharge when medically stable Hospitalist Physical General appearance: Present: no acute distress - EENT Eyes: Present: PERRL, EOM intact ENT: clear oral mucosa - Neck Neck: Present: supple - Respiratory Respiratory effort: normal Respiratory: bilateral: CTA - Cardiovascular Rhythm: regular Heart Sounds: Present: S1 & S2 - Extremities Extremities: No edema - Abdominal General gastrointestinal: soft, non-tender, normal bowel sounds - Neurologic Neurologic: other (patient is awake and alert but unable to communicate appropriately) Subjective Date of service: 05/17/18 Interval history: patient seen and examined hb 6.1 today no acute event per RN Objective - Constitutional Vitals: Vital Signs - 12hr 05/17/18 05/17/18 05/17/18 06:03 10:09 10:49 Temperature 98.2 F 98.0 F Pulse Rate 91 H 93 H Respiratory 20 16 Rate Blood Pressure 105/57 Blood Pressure 109/55 [Left] O2 Sat by Pulse 99 99 99 Oximetry 05/17/18 12:49 Temperature 97.4 F L Pulse Rate 96 H Respiratory 20 Rate Blood Pressure 143/63 Blood Pressure [Left] O2 Sat by Pulse 100 Oximetry - Labs CBC & Chem 7: 05/18/18 05:08 05/18/18 05:08 Labs: Abnormal lab results 09/13/18 09/13/18 09/13/18 Range/Units 09:43 09:43 11:32 WBC 1.9 L* (4.5-11.0) K/mm3 RBC 1.92 L (3.65-5.03) M/mm3 Hgb 6.1 L (11.8-15.2) gm/dl Hct 17.3 L* (35.5-45.6) % MCHC 36 H (32-34) % RDW 16.5 H (13.2-15.2) % Plt Count 75 L (140-440) K/mm3 Sodium 130 L (137-145) mmol/L Carbon Dioxide 19 L (22-30) mmol/L Calcium 7.6 L (8.4-10.2) mg/dL Crossmatch See Detail
[2018-05-18 05:42] LABS: Hematocrit 26.3 % (35.5-45.6); Hemoglobin 9.2 gm/dl (11.8-15.2); Mean Corpuscular HGB Conc 35 % (32-34); Mean Corpuscular Hemoglobin 30 pg (28-32); Mean Corpuscular Volume 87 fl (84-94); Red Blood Count 3.04 M/mm3 (3.65-5.03); Red Cell Distribution Width 16.6 % (13.2-15.2)
[2018-05-18 05:43] LABS: Platelet Count 76 K/mm3 (140-440)
[2018-05-18 06:12] LABS: BUN/Creatinine Ratio 19; Blood Urea Nitrogen 17 mg/dL (9-20); Calcium 7.9 mg/dL (8.4-10.2); Hemolysis Index 0
[2018-05-18] MEDS: D5NS 1,000 ML IV SCH (06:31)
[2018-05-18 07:20] LABS: Basophils % (Manual) 0 % (0.0-1.8); Eosinophils % (Manual) 0 % (0.0-4.3); Total Cells Counted 100
[2018-05-18 07:21] LABS: Acanthocytes 1+; Anisocytosis 1+; Ovalocytes 1+; Poikilocytosis 3+; Tear Drop Cells Few
[2018-05-18 07:22] LABS: Platelet Estimate Cons
[2018-05-18] MEDS: HumaLOG SUB-Q SCH ×4 (07:57→22:18)
[2018-05-18] MEDS: PLETAL PO SCH ×2 (10:07→22:10)
[2018-05-18] MEDS: KEPPRA PO SCH ×2 (10:07→22:11)
[2018-05-18] MEDS: COREG PO SCH ×2 (10:09→22:11)
[2018-05-18] MEDS: RANEXA ER PO SCH ×2 (10:10→22:10)
[2018-05-18] MEDS: ZESTRIL PO SCH (12:03)
[2018-05-18] MEDS: IMDUR PO SCH (12:03)
[2018-05-18] MEDS: PLAVIX PO SCH (12:03)
[2018-05-18] MEDS: THERAGRAN Tab PO SCH (12:06)
[2018-05-18] MEDS: NEURONTIN PO SCH (12:06)
[2018-05-18] MEDS: PROTONIX PO SCH (12:07)
[2018-05-18] MEDS: VITAMIN B-12 PO SCH (12:10)
[2018-05-18] MEDS: LEVAQUIN 750MG/150ML 750 MG/150 ML BAG IV SCH (13:00)
--- NOTE | 2018-05-18 15:09 | Event Note ---
Date: 05/18/18 anemia - s/p prbc low wbc - ANc > 1 on 05/18 thrombocytopenia tried to call family - will try again Pt may need more Ix for cytopenia [facility] - [phone]
--- NOTE | 2018-05-18 17:14 | Progress Note ---
Assessment and Plan Acute right embolic lacunar CVA -Continue stroke protocol -CT head negative for acute findings -MRI brain, MRA head and neck, echocardiogram and carotid Doppler ultrasound ordered, and noted report -Neurology following, s/p speech eval Dysathria, likely from acute stroke - speech eval pending, on D5NS - will start on mechanical soft diet SIRS -Exact source of infection unknown -ua neg, cxr neg -Follow up blood culture results -Fever has trended down Acute encephalopathy -Exact cause unknown, probably secondary to stroke versus vascular dementia Anemia of chronic disease -HB level at baseline is 8. -dropped to 6.1, ordered stool for occult blood - We will monitor H&H and transfused 2 units PRBC yesterday - consulted hematology, normal B12/folate Acute on chronic Hyponatremia -IV fluid started, monitor sodium level DM2, stable -On SSI Seizure disorder -Home Keppra resumed -Seizure precautions CAD/PVD, stable -Home meds resumed H/O HLD -on statin GERD -on PPI Disposition: For discharge when medically stable Hospitalist Physical General appearance: Present: no acute distress - EENT Eyes: Present: PERRL, EOM intact ENT: clear oral mucosa - Neck Neck: Present: supple - Respiratory Respiratory effort: normal Respiratory: bilateral: CTA - Cardiovascular Rhythm: regular Heart Sounds: Present: S1 & S2 - Extremities Extremities: No edema - Abdominal General gastrointestinal: soft, non-tender, normal bowel sounds - Neurologic Neurologic: other (patient is awake and alert but unable to communicate appropriately) Subjective Date of service: 05/18/18 Interval history: patient seen and examined hb improved with transfusion no acute event per RN Discussed with family by phone Objective - Constitutional Vitals: Vital Signs - 12hr 05/18/18 05/18/18 05/18/18 06:06 09:31 15:16 Temperature 98.2 F 97.6 F 98.3 F Pulse Rate 87 91 H 109 H Respiratory 18 18 16 Rate Blood Pressure 148/71 167/69 Blood Pressure 137/64 [Left] O2 Sat by Pulse 98 99 98 Oximetry - Labs CBC & Chem 7: 05/19/18 06:17 05/18/18 05:08 Labs: Abnormal lab results 05/17/18 05/17/18 05/18/18 Range/Units 09:43 22:18 05:08 WBC 2.7 L (4.5-11.0) K/mm3 RBC 3.04 L (3.65-5.03) M/mm3 Hgb 9.2 L D (11.8-15.2) gm/dl Hct 26.3 L D (35.5-45.6) % MCHC 35 H (32-34) % RDW 16.6 H (13.2-15.2) % Plt Count 76 L (140-440) K/mm3 Monocytes % (Manual) 21.0 H (0.0-7.3) % Seg Neutrophils # Man 1.4 L (1.8-7.7) K/mm3 Lymphocytes # (Manual) 0.8 L (1.2-5.4) K/mm3 Sodium (137-145) mmol/L Chloride (98-107) mmol/L Carbon Dioxide (22-30) mmol/L Glucose (75-100) mg/dL POC Glucose 106 H (70-105) Calcium (8.4-10.2) mg/dL Vitamin B12 (211-911) pg/mL Crossmatch See Detail 05/18/18 05/18/18 Range/Units 05:08 12:22 WBC (4.5-11.0) K/mm3 RBC (3.65-5.03) M/mm3 Hgb (11.8-15.2) gm/dl Hct (35.5-45.6) % MCHC (32-34) % RDW (13.2-15.2) % Plt Count (140-440) K/mm3 Monocytes % (Manual) (0.0-7.3) % Seg Neutrophils # Man (1.8-7.7) K/mm3 Lymphocytes # (Manual) (1.2-5.4) K/mm3 Sodium 130 L (137-145) mmol/L Chloride 97.3 L (98-107) mmol/L Carbon Dioxide 20 L (22-30) mmol/L Glucose 104 H (75-100) mg/dL POC Glucose (70-105) Calcium 7.9 L (8.4-10.2) mg/dL Vitamin B12 1542 H (211-911) pg/mL Crossmatch
--- NOTE | 2018-05-19 03:22 | Consultation ---
REFERRED BY: Razia Funez MD REASON FOR CONSULTATION: Anemia, leukopenia, thrombocytopenia. HISTORY OF PRESENT ILLNESS: I saw the patient, an 82-year-old male in the medical floor. The patient has history of hypertension, hyperlipidemia, coronary artery disease status post CABG, diabetes mellitus, GERD, seizure disorder, gout, [place]. The patient came to the hospital because of lethargy. The patient speaks [place] and most of the information comes from medical record. There is a phone number available, I tried to call that number; however, nobody answered. As per the information available, the patient was in usual state of health until the day of admission when he was found to have confusion and left-side drooping. As per the EMS, upon arrival, the patient was found to have symptoms consistent with CVA and CVA protocol was initiated. Neurology was consulted. The patient was outside the therapeutic window and not deemed a candidate for TPA. Further history not available. Blood test shows cytopenia, anemia, leukopenia, and thrombocytopenia. I have been asked to evaluate the patient for this. PAST MEDICAL HISTORY: As above. PAST SURGICAL HISTORY: CABG. SOCIAL HISTORY: , lives with family. No history of tobacco or alcohol usage as per the note. FAMILY HISTORY: Coronary artery disease, diabetes, hypertension. ALLERGIES: None. HOME MEDICATIONS: Included carvedilol, Plavix, isosorbide mononitrate, lisinopril, cilostazol, gabapentin, nitroglycerin, Keppra, ranolazine, atorvastatin, vitamin B12 orally, multivitamin, Januvia, Protonix, Levaquin. ACTIVE MEDICATIONS: Include atorvastatin, carvedilol, cilostazol, Plavix, B12, Neurontin, Keppra, lisinopril, among others. PHYSICAL EXAMINATION: VITAL SIGNS: Temperature 97.6, pulse 91, respirations 18, BP 148/71. HEENT: Pallor present. No icterus. GENERAL: Thin built male. NECK: No neck lymph nodes. HEART: S1, S2. LUNGS: Clear to auscultation. ABDOMEN: Soft. EXTREMITIES: No pedal edema. NEUROLOGIC: Alert, awake, follows commands of opening mouth and moving hands. LABORATORY DATA: White cell 2.7, hemoglobin 9.2, MCV 87, platelets 76. On admission, white cell was 1.9 and hemoglobin 6.1. The patient received 2 units of transfusion, smear mentions poikilocytes anisocytosis teardrops. Other labs includes creatinine 0.9. RADIOLOGY: MRI of the brain was done. ASSESSMENT AND PLAN: 1. Leukopenia. ANC of 1.4 would need investigation. Peripheral smear was reviewed by pathologist. The patient may need more investigation like bone marrow biopsy. 2. Anemia. MCV is normal. The patient received transfusion support. Folate level 13. TSH 1.7. B12 1542. Ferritin in October was 401. Serum iron 74 in October. Admitted with possible CVA. Neurology has been following. 3. Encephalopathy. 4. History of congestive heart failure. 5. History of diabetes. 6. History of hypertension. 7. History of dysarthria. 8. History of seizure disorder. 9. I will follow the patient during inpatient stay. I will try to contact the family. JOB# [id number] NM/NTS
[2018-05-19] MEDS: D5NS 1,000 ML IV SCH (05:31)
[2018-05-19 07:21] LABS: Hematocrit 22.2 % (35.5-45.6); Hemoglobin 7.9 gm/dl (11.8-15.2)
[2018-05-19] MEDS: HumaLOG SUB-Q SCH ×2 (08:00→14:00)
[2018-05-19] MEDS: ZESTRIL PO SCH (10:17)
[2018-05-19] MEDS: RANEXA ER PO SCH (10:17)
[2018-05-19] MEDS: PLAVIX PO SCH (10:17)
[2018-05-19] MEDS: THERAGRAN Tab PO SCH (10:17)
[2018-05-19] MEDS: VITAMIN B-12 PO SCH (10:17)
[2018-05-19] MEDS: LEVAQUIN 750MG/150ML 750 MG/150 ML BAG IV SCH (10:17)
[2018-05-19] MEDS: IMDUR PO SCH (10:18)
[2018-05-19] MEDS: KEPPRA PO SCH (10:18)
[2018-05-19] MEDS: PLETAL PO SCH (10:18)
[2018-05-19] MEDS: NEURONTIN PO SCH (10:18)
[2018-05-19] MEDS: PROTONIX PO SCH (10:18)
[2018-05-19] MEDS: COREG PO SCH (10:18)
--- NOTE | 2018-05-19 14:32 | Progress Note ---
Subjective Date of service: 05/19/18 Interval history: careful review of MRI very small distal ischemic infacrt over the right parietooccipital lobe suspect distal mca infarct small vessel this is new stroke IMO Objective - Vital Sign Vital Signs - 12hr 05/19/18 05/19/18 05/19/18 05:03 07:56 08:18 Temperature 98.4 F 97.4 F L Pulse Rate 92 H 83 81 Respiratory 20 16 Rate Blood Pressure 114/57 119/52 O2 Sat by Pulse 98 99 Oximetry - Laboratory Findings CBC and BMP: 05/19/18 06:17 05/18/18 05:08 Abnormal Lab Findings: Abnormal Labs 05/14/18 05/14/18 05/14/18 16:09 16:51 16:51 WBC 2.8 L RBC 2.41 L Hgb 7.7 L Hct 21.5 L MCHC 36 H RDW 17.6 H Plt Count 113 L Monocytes % (Manual) 24.0 H Seg Neutrophils # Man 1.2 L Lymphocytes # (Manual) 0.9 L PT 15.2 H INR 1.14 H APTT 36.7 H Sodium Chloride Carbon Dioxide Glucose POC Glucose 114 H Calcium HDL Cholesterol Vitamin B12 Crossmatch 05/14/18 05/15/18 05/15/18 16:51 05:39 22:29 WBC RBC Hgb Hct MCHC RDW Plt Count Monocytes % (Manual) Seg Neutrophils # Man Lymphocytes # (Manual) PT INR APTT Sodium 126 L Chloride 90.6 L Carbon Dioxide Glucose 105 H POC Glucose 106 H Calcium 8.1 L HDL Cholesterol 23 L Vitamin B12 Crossmatch 05/16/18 05/16/18 05/16/18 07:01 07:01 13:26 WBC 2.5 L RBC 2.24 L Hgb 7.1 L 6.9 L Hct 20.0 L 19.7 L* MCHC 35 H RDW 17.2 H Plt Count 85 L Monocytes % (Manual) 18.0 H Seg Neutrophils # Man 1.4 L Lymphocytes # (Manual) 0.7 L PT INR APTT Sodium 127 L Chloride 95.6 L Carbon Dioxide Glucose 101 H POC Glucose Calcium 7.8 L HDL Cholesterol Vitamin B12 Crossmatch 05/17/18 05/17/18 05/17/18 09:43 09:43 11:32 WBC 1.9 L* RBC 1.92 L Hgb 6.1 L Hct 17.3 L* MCHC 36 H RDW 16.5 H Plt Count 75 L Monocytes % (Manual) Seg Neutrophils # Man Lymphocytes # (Manual) PT INR APTT Sodium 130 L Chloride Carbon Dioxide 19 L Glucose POC Glucose Calcium 7.6 L HDL Cholesterol Vitamin B12 Crossmatch See Detail 05/17/18 05/18/18 05/18/18 22:18 05:08 05:08 WBC 2.7 L RBC 3.04 L Hgb 9.2 L D Hct 26.3 L D MCHC 35 H RDW 16.6 H Plt Count 76 L Monocytes % (Manual) 21.0 H Seg Neutrophils # Man 1.4 L Lymphocytes # (Manual) 0.8 L PT INR APTT Sodium 130 L Chloride 97.3 L Carbon Dioxide 20 L Glucose 104 H POC Glucose 106 H Calcium 7.9 L HDL Cholesterol Vitamin B12 Crossmatch 05/18/18 05/18/18 05/19/18 12:22 21:21 06:17 WBC RBC Hgb 7.9 L Hct 22.2 L MCHC RDW Plt Count Monocytes % (Manual) Seg Neutrophils # Man Lymphocytes # (Manual) PT INR APTT Sodium Chloride Carbon Dioxide Glucose POC Glucose 106 H Calcium HDL Cholesterol Vitamin B12 1542 H Crossmatch 05/19/18 06:44 WBC RBC Hgb Hct MCHC RDW Plt Count Monocytes % (Manual) Seg Neutrophils # Man Lymphocytes # (Manual) PT INR APTT Sodium Chloride Carbon Dioxide Glucose POC Glucose 111 H Calcium HDL Cholesterol Vitamin B12 Crossmatch
--- NOTE | 2018-05-19 15:55 | Discharge Summary ---
Providers - Providers Date of Admission: 05/14/18 18:44 Date of discharge: 05/19/18 Attending physician: JOANNA WOODARD 05/14/18 16:31 Consult to Physician [CONS] Urgent Comment: Consulting Provider: MARCY JONES Physician Instructions: Reason For Exam: cva 05/14/18 16:34 Speech Therapy Evaluation and Treat [CONS] Routine Reason For Exam: failed bedsdie swallow eval 05/14/18 18:44 Occupational Therapy Evaluate and Treat [CONS] Routine Comment: Reason For Exam: Neuro deficits Physical Therapy Evaluation and Treat [CONS] Routine Comment: Reason For Exam: Neuro deficits 05/18/18 08:52 Consult to Physician [CONS] Routine Comment: Consulting Provider: ELHAM SIMMONS Physician Instructions: Reason For Exam: pancytopenia Primary care physician: GEAR HOBBER Hospitalization Condition: Fair Hospital course: Discharge diagnosis: Acute right embolic lacunar CVA -Continue stroke protocol -CT head negative for acute findings -MRI brain, MRA head and neck, echocardiogram and carotid Doppler ultrasound ordered, and noted report -Neurology following, s/p speech eval Dysathria, likely from acute stroke - speech eval pending, on D5NS - will start on mechanical soft diet SIRS -Exact source of infection unknown -ua neg, cxr neg -Follow up blood culture results -Fever has trended down Acute encephalopathy -Exact cause unknown, probably secondary to stroke versus vascular dementia Anemia of chronic disease -HB level at baseline is 8. -dropped to 6.1 w/o any active bleeding, ordered stool for occult blood - We will monitor H&H and transfused 2 units PRBC yesterday - consulted hematology, normal B12/folate - plan for bone marrow biopsy as outpt Acute on chronic Hyponatremia -IV fluid started, monitor sodium level DM2, stable -On SSI Seizure disorder -Home Keppra resumed -Seizure precautions CAD/PVD, stable -Home meds resumed H/O HLD -on statin GERD -on PPI Disposition: For discharge when medically stable Hospitalist Physical General appearance: Present: no acute distress - EENT Eyes: Present: PERRL, EOM intact ENT: clear oral mucosa - Neck Neck: Present: supple - Respiratory Respiratory effort: normal Respiratory: bilateral: CTA - Cardiovascular Rhythm: regular Heart Sounds: Present: S1 & S2 - Extremities Extremities: No edema - Abdominal General gastrointestinal: soft, non-tender, normal bowel sounds - Neurologic Neurologic: other (patient is awake and alert but unable to communicate appropriately) Disposition: DC/[place]-06 HOME UNDER HOME [facility] Time spent for discharge: 34 minutes Core Measure Documentation - Palliative Care Palliative Care/ Comfort Measures: Not Applicable - Core Measures Any of the following diagnoses?: stroke - Stroke Discharge Requirements Statin for LDL = or >70 mg/dl on DC: Yes Anticoag for atrial fib/atrial flutter: Not Applicable Antithrombotic for ischemic stroke: Yes Exam - Constitutional Vitals: Temp Pulse Resp BP Pulse Ox 97.4 F L 81 16 119/52 99 05/19/18 07:56 05/19/18 08:18 05/19/18 07:56 05/19/18 07:56 05/19/18 07:56 Plan Activity: up only with assistance Weight Bearing Status: Non-Weight Bearing Diet: low cholesterol Special Instructions: physical therapy, home health RN Additional Instructions: f/u with Dr Jose Manuel mcmillan for possible bone marrow biopsy Follow up with: PRIMARY CAREMD [Primary Care Provider] - 3-5 Days
--- NOTE | 2018-05-19 15:58 | Discharge Summary ---
Providers - Providers Date of Admission: 05/14/18 18:44 Date of discharge: 05/19/18 Attending physician: JOANNA WOODARD 05/14/18 16:31 Consult to Physician [CONS] Urgent Comment: Consulting Provider: MARCY JONES Physician Instructions: Reason For Exam: cva 05/14/18 16:34 Speech Therapy Evaluation and Treat [CONS] Routine Reason For Exam: failed bedsdie swallow eval 05/14/18 18:44 Occupational Therapy Evaluate and Treat [CONS] Routine Comment: Reason For Exam: Neuro deficits Physical Therapy Evaluation and Treat [CONS] Routine Comment: Reason For Exam: Neuro deficits 05/18/18 08:52 Consult to Physician [CONS] Routine Comment: Consulting Provider: ELHAM RICHARD Physician Instructions: Reason For Exam: pancytopenia Primary care physician: C[employer]TING [employer]ACHINE [employer]ER Hospitalization Condition: Fair Hospital course: Discharge diagnosis and management: Acute right embolic lacunar CVA -Continue stroke protocol -CT head negative for acute findings -MRI brain, MRA head and neck, echocardiogram and carotid Doppler ultrasound ordered, and noted report -Neurology following, s/p speech eval Dysathria, likely from acute stroke - speech eval pending, on D5NS - will start on mechanical soft diet SIRS -Exact source of infection unknown -ua neg, cxr neg -Follow up blood culture results -Fever has trended down Acute encephalopathy -Exact cause unknown, probably secondary to stroke versus vascular dementia Anemia of chronic disease -HB level at baseline is 8. -dropped to 6.1 w/o any active bleeding, ordered stool for occult blood - We will monitor H&H and transfused 2 units PRBC yesterday - consulted hematology, normal B12/folate - plan for bone marrow biopsy as outpt Acute on chronic Hyponatremia -IV fluid started, monitor sodium level DM2, stable -On SSI Seizure disorder -Home Keppra resumed -Seizure precautions CAD/PVD, stable -Home meds resumed H/O HLD -on statin GERD -on PPI Disposition: DC/[place]-06 HOME [facility] Time spent for discharge: 34 minutes Core Measure Documentation - Palliative Care Palliative Care/ Comfort Measures: Not Applicable - Core Measures Any of the following diagnoses?: stroke - Stroke Discharge Requirements Anticoag for atrial fib/atrial flutter: Not Applicable Antithrombotic for ischemic stroke: Yes Exam - Constitutional Vitals: Temp Pulse Resp BP Pulse Ox 97.4 F L 81 16 119/52 99 05/19/18 07:56 05/19/18 08:18 05/19/18 07:56 05/19/18 07:56 05/19/18 07:56 Plan Activity: up only with assistance Weight Bearing Status: Non-Weight Bearing Diet: per dietitian instruction Special Instructions: physical therapy, home health RN Additional Instructions: f/u with Dr Richard in one week for possible BM biopsy. Follow up with: PRIMARY CARE, [Primary Care Provider] - 3-5 Days
[2018-05-19 17:26] VITALS: BP 119/58
== END 2018-05-19 18:00 | disposition home health service (06) | DRG 64 ==
LOC: ED 16:06 → 4A 18:44
PROVIDERS: ADMIT Internal Medicine; ATTEND Internal Medicine
PROC: 30233N1 Transfusion of Nonautologous Red Blood Cells into Peripheral Vein, Percutaneous Approach (ICD-10-PCS; principal; 2018-05-17)
DX: I63.531 Cerebral infarction due to unspecified occlusion or stenosis of right posterior cerebral artery (principal); G93.40 Encephalopathy, unspecified; I50.31 Acute diastolic (congestive) heart failure; E87.1 Hypo-osmolality and hyponatremia; R65.10 Systemic inflammatory response syndrome (SIRS) of non-infectious origin without acute organ dysfunction; Z95.5 Presence of coronary angioplasty implant and graft; I25.2 Old myocardial infarction; I11.0 Hypertensive heart disease with heart failure; K21.9 Gastro-esophageal reflux disease without esophagitis; M10.9 Gout, unspecified; Z95.1 Presence of aortocoronary bypass graft; E78.00 Pure hypercholesterolemia, unspecified; Z87.891 Personal history of nicotine dependence; Z79.899 Other long term (current) drug therapy; Z83.3 Family history of diabetes mellitus; Z82.49 Family history of ischemic heart disease and other diseases of the circulatory system; E78.5 Hyperlipidemia, unspecified; D63.1 Anemia in chronic kidney disease; G40.909 Epilepsy, unspecified, not intractable, without status epilepticus; I25.10 Atherosclerotic heart disease of native coronary artery without angina pectoris; E11.51 Type 2 diabetes mellitus with diabetic peripheral angiopathy without gangrene; R47.1 Dysarthria and anarthria; D69.6 Thrombocytopenia, unspecified
CPT/HCPCS: 36415; 70450; 70544; 70551; 71045; 80048; 80061; 81001; 82140; 82607; 82747; 82962; 83735; 84484; 85007; 85014; 85018; 85025; 85027; 85610; 85730; 86850; 86900; 86901; 86920; 87040; 93005; 93010; 93306; 93880; 94760; A9270-GY; G8978-GP; G8979-GP; G8996-GN; G8997-GN; G8998-GN; J0696; J1956; J7030; J7040; J7042; P9016